=== PATIENT | male | born 1970 | race Caucasian/White ===

== ENCOUNTER 2022-03-26 20:37 | Inpatient (IN) | payer BC, SELFPAY ==
--- NOTE | ~2022-03-26 | CT_ITS ---
EXAMINATION: CT CHEST WITHOUT CONTRAST CT ABDOMEN AND PELVIS WITHOUT CONTRAST CLINICAL INFORMATION: Fall down stairs. Posterior rib pain. Rule out fracture. COMPARISON: None. TECHNIQUE: Multidetector volumetric imaging was performed through the chest, abdomen and pelvis without contrast. Sagittal and coronal reformatted images were obtained on the technologist's workstation. Axial MIP volume rendering provided. This CT examination was performed using dose optimization techniques as appropriate, variously including the following: *Automated exposure control *Adjustment of mA and/or kV according to patient size (this includes techniques or standardized protocols for targeted exams where dose is matched to indication/reason for exam; i.e. extremities or head) *Use of iterative reconstruction technique DLP: 722 mGy-cm. FINDINGS: CHEST: Lungs: The central airways are patent. No consolidation. No pleural effusion or pneumothorax. There are no pulmonary parenchymal nodules. Mediastinum: The heart is of normal size. There is no pericardial effusion. Central vascular structures are unremarkable. No hilar or mediastinal lymphadenopathy. Chest Wall/Axilla: No lymphadenopathy. No chest wall mass. ABDOMEN/PELVIS: Liver, Gallbladder, Biliary Tree: The liver is normal in size, shape, and attenuation. No focal hepatic lesion or biliary ductal dilatation is present. The gallbladder is contracted with no evidence of radiopaque gallstones, gallbladder wall thickening, or pericholecystic inflammatory changes. Pancreas: Unremarkable. Spleen: Unremarkable. Adrenal Glands: Unremarkable. Kidneys and Ureters: The kidneys are normal in size, shape, and attenuation. No hydronephrosis, hydroureter or calculi seen. No perinephric stranding. Bladder: Unremarkable. Gastrointestinal Tract: The stomach and small bowel appear unremarkable. No dilated loops of bowel or evidence of obstruction. No diverticulosis. No colonic wall thickening or adjacent inflammatory changes. No free air or free fluid. The appendix is unremarkable. Abdominal Wall: No hernia is demonstrated. Lymphovascular Structures: Lymph nodes: Normal. Vascular: Normal caliber aorta with mild atherosclerotic calcification. Pelvic Viscera: The prostate and seminal vesicles are unremarkable. OSSEOUS STRUCTURES: Vertebral body height and alignment maintained. Small endplate osteophytes throughout. Multilevel vacuum disc phenomenon. Intact sternum. The ribs are intact. The pelvis is intact. CT/CT abdomen pelvis wo con IMPRESSION: No acute traumatic finding of the chest, abdomen, or pelvis. No acute fractures are seen.
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
--- NOTE | ~2022-03-26 | CT_ITS ---
EXAMINATION: CT HEAD WITHOUT CONTRAST CT CERVICAL SPINE WITHOUT CONTRAST CLINICAL INFORMATION: Head strike. Headache. Neck pain. COMPARISON: CT head 01/01/2008 TECHNIQUE: Imaging was performed from the skull base to vertex without intravenous administration of contrast. In addition, helical noncontrast CT imaging was acquired through the cervical spine and source images were reviewed along with axial reconstructions and sagittal and coronal MPRs. [This CT examination was performed using dose optimization techniques as appropriate, variously including the following: *Automated exposure control *Adjustment of mA and/or kV according to patient size (this includes techniques or standardized protocols for targeted exams where dose is matched to indication/reason for exam; i.e. extremities or head) *Use of iterative reconstruction technique] DLP: 1163 mGy-cm FINDINGS: HEAD: No intracranial mass, hemorrhage, or midline shift is visualized. The ventricles and sulci are proportional. No extra-axial collections are identified. There is mucosal sinus disease in the left maxillary sinus CERVICAL SPINE: There is no evidence of acute cervical spine fracture. Vertebral bodies remain normal in height. Cervical vertebrae have normal alignment. There is multilevel degenerative spondylosis of the cervical spine with disc height narrowing and endplate spurs and facet joint arthrosis No pre- or paravertebral soft tissue abnormality is identified. Limited assessment of the lung apices is unremarkable. CT/CT head/brain wo con IMPRESSION: 1. No acute intracranial pathology. 2. No CT evidence of acute cervical spine fracture or traumatic subluxation
[2022-03-26 20:42] VITALS: BP 177/98; PULSE 100; RESP 20; TEMP 36.6; O2SAT 96; BMI 28.2
[2022-03-26 21:14] VITALS: BP 155/94; PULSE 108; RESP 18; TEMP 37.1; O2SAT 97
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
[2022-03-26 21:37] LABS: Basophils Absolute Auto 0.1 X10*3/uL (0.0-0.2); Eosinophils Absolute Auto 0.4 X10*3/uL (0.0-0.4); Eosinophils Percent Auto 4.9 % (0-4); Hematocrit 38.8 % (42.0-52.0); Hemoglobin 12.3 g/dl (14.0-18.0); Imm Gran Abs Auto 0.02 X10*3/uL (0.00-0.03); Imm Gran Pct Auto 0.2 % (0.0-0.4); Lymphocytes Absolute Auto 2.6 X10*3/uL (1.2-4.9); Lymphocytes Percent Auto 28.1 % (20-40); MANUAL DIFF FLAG NO; Mean Corpuscular HGB Conc 31.7 g/dl (31.0-36.0); Mean Corpuscular Hemoglobin 26.3 pg (27.0-33.0); Mean Corpuscular Volume 83.1 fL (80.0-98.0); Mean Platelet Volume 9.1 fL (9.4-12.4); Monocytes Absolute Auto 0.9 X10*3/uL (0.1-1.2); Monocytes Percent Auto 9.6 % (2-11); Neutrophils Absolute Auto 5.1 x10*3/uL (2.0-8.3); Neutrophils Percent Auto 56.2 % (45-73); Platelet Count 327 X10*3/uL (160-400); Red Blood Count 4.67 X10*6/uL (4.60-5.80); White Blood Count 9.1 X10*3/uL (4.8-10.8)
[2022-03-26 21:42] LABS: COVID-19 Test Negative (Negative)
[2022-03-26 22:08] LABS: Alanine Aminotransferase 54 U/L (0-40); Albumin Level 4.2 g/dL (3.5-5.0); Alkaline Phosphatase 87 U/L (39-117); Anion Gap 15 (12-20); Aspartate Amino Transferase 39 U/L (5-37); Bilirubin Direct 0.2 mg/dL (0.0-0.5); Bilirubin Total 0.4 mg/dL (0.0-1.0); Blood Urea Nitrogen 14 mg/dL (9-16); Calcium 9.2 mg/dL (8.4-10.2); Carbon Dioxide 27 mmol/L (22-29); Chloride 104 mmol/L (96-108); Creatinine Clr Calc Pharmacy 90.2; Estimated Glomerular Filt Rate > 60; Ethanol < 10 mg/dL; Glucose Random 94 mg/dL (60-115); Magnesium 2.3 mg/dL (1.6-2.6); Potassium 3.9 mmol/L (3.3-5.1); Sodium 142 mmol/L (135-145); Total Protein 7.2 g/dL (6.5-8.0)
[2022-03-26 22:40] LABS: Appearance Urine Clear; Color Urine Dark Yellow; Glucose Urine UA Negative (Negative); Leukocyte Esterase Urine Negative (Negative); Nitrite Urine Negative (Negative); PH 5.5 (5.0-8.0); Specific Gravity - Urine >= 1.030 (1.005-1.025); Urine Blood Negative (Negative); Urine Ketones Trace mg/dL (Negative); Urine Protein Trace mg/dL (Neg-Trace)
[2022-03-26 22:56] LABS: Amphetamine Screen Urine Not Detected (Not Detect); Barbiturates, Urine Not Detected (Not Detect); Benzodiazepines Screen Urine Not Detected (Not Detect); Cannabinoid Screen Urine POSITIVE (Not Detect); Cocaine Screen Urine POSITIVE (Not Detect); Fentanyl, urine POSITIVE (Not Detect); Opiate Screen Urine POSITIVE (Not Detect); Phencyclidine Screen Urine Not Detected (Not Detect)
--- NOTE | 2022-03-27 04:19 | PC.NURSE ---
Patient is in bed appears sleeping, no distress observed/reported at this time, patient ambulates with walker due to left knee torn meniscus, patient reports pain when ambulates, med rec completed/approved, patient was assessed by care team, pending disposition due to unable to reach collateral, but disposition more likely inpatient bed search, will continue to monitor.
--- NOTE | 2022-03-27 07:17 | PC.NURSE ---
patient appears luisana remain asleep at present, respirations are even and unlabored patient appears in no distress
[2022-03-27 07:59] VITALS: BP 153/65; PULSE 68; RESP 18; TEMP 37.2
[2022-03-27] MEDS: Aspirin Enteric Coated 325 MG TABLET.DR PO ×2 (08:20→21:56)
[2022-03-27] MEDS: Gabapentin 100 MG CAPSULE PO ×3 (08:20→21:56)
--- NOTE | 2022-03-27 11:12 | ECG_ITS ---
Test Reason : med clearance Blood Pressure : / mmHG Vent. Rate : 064 BPM Atrial Rate : 064 BPM P-R Int : 132 ms QRS Dur : 094 ms QT Int : 430 ms P-R-T Axes : 018 -05 009 degrees QTc Int : 443 ms Normal sinus rhythm with sinus arrhythmia Normal ECG No previous ECGs available Referred By: Ana Perez Electronically Signed By:LATOYA BENNETT
--- NOTE | 2022-03-27 11:26 | PHA.MEDREC ---
Pharmacy Consult ? Medication Reconciliation Pharmacy has completed the medication reconciliation. Reviewed med rec done by nursing
[2022-03-27] MEDS: Acetaminophen 325 MG TABLET 650 MG PO (16:12)
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
[2022-03-27] MEDS: hydrOXYzine HCL 25 MG TABLET PO (18:53)
[2022-03-28 06:00] VITALS: BP 141/75; PULSE 66; RESP 18; TEMP 36.1; O2SAT 100
[2022-03-28 08:03] LABS: Estimated Average Glucose 100 mg/dL; Hemoglobin A1c % 5.1 %
[2022-03-28 08:12] LABS: Cholesterol 231 mg/dL; HDL Cholesterol 56 mg/dL; LDL Cholesterol Calculated 162 mg/dl; Magnesium 2.3 mg/dL (1.6-2.6); Triglycerides 66 mg/dL
[2022-03-28 08:34] LABS: Free T4 (Free Thyroxine) 0.95 ng/dL (0.71-1.85); Thyroid Stimulating Hormone 0.09 uIU/mL (0.32-4.0)
[2022-03-28] MEDS: Gabapentin 100 MG CAPSULE PO ×3 (08:55→20:59)
[2022-03-28] MEDS: Aspirin Enteric Coated 325 MG TABLET.DR PO ×2 (08:55→20:59)
[2022-03-28 08:56] VITALS: BP 149/71; PULSE 71; RESP 16; TEMP 36.7; O2SAT 100
--- NOTE | 2022-03-28 11:11 | P.HPPS_ITS ---
HPI Date of Service: 03/28/22 Chief Complaint: recurrent major depression opiate cocaine use diso Sources of Information: patient interviewed, chart reviewed and crisis/core team assessment reviewed HPI Subjective Notes: Hanks Warning and Conditional Voluntary Narrative: pt is a 51 yo male with hx of depression and opiod and cocaine abuse/dependence who presents depressed, with SI and in opiate and cocaine withdrawal in face of marital strife and relapse. Pt says up until past 4 months, he's always been in an overall good mood. He's not sure why, but started getting depressed. Two years ago pt had shoulder surgery and due to pain, started using opiates, eventually combined with cocaine. He's been hiding his addiction from his . This past week, said she was leaving him which worsened depression and triggered increased drug use. Patient became suicidal and planned to jump off bridge to end his life. His brother knew about it and went after him to stop him. Pt reported AH and VH, however he says it's resolved, never happened before and he thinks it was just due to drugs. Currently, no longer SI, but remains depressed and tearful. Pt wants to get back on Suboxone and wants to start med for depression. Denies Trauma hx; denies manic type behavior or episodes; denies etoh. 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 Substance History: cocaine/opiates 2-3 years Trauma History: denies Diagnostics Vital Signs (24Hr): Vital Signs - 24 hr 03/28/22 06:00 03/28/22 08:56 Temperature 97 F 98.1 F Pulse Rate 66 71 Respiratory Rate 18 16 Blood Pressure 141/75 H 149/71 H Pulse Oximetry 100 100 Oxygen Delivery Method Room Air Room Air BMI result Body Mass Index 28.2 Labs Results: 03/26/22 21:31 03/26/22 21:31 Labs: Laboratory Results - last 48 hr 03/26/22 03/26/22 03/26/22 21:19 21:31 21:31 WBC 9.1 RBC 4.67 Hgb 12.3 L Hct 38.8 L MCV 83.1 MCH 26.3 L MCHC 31.7 RDW 14.0 Plt Count 327 MPV 9.1 L Immature Gran % (Auto) 0.2 Neut % (Auto) 56.2 Lymph % (Auto) 28.1 Parke % (Auto) 9.6 Eos % (Auto) 4.9 H Baso % (Auto) 1.0 Lymph # (Auto) 2.6 Parke # (Auto) 0.9 Eos # (Auto) 0.4 Baso # (Auto) 0.1 Abs Immat Gran (auto) 0.02 Absolute Neuts (auto) 5.1 Absolute Nucleated RBC 0.000 Nucleated RBC % (auto) 0.0 Sodium 142 Potassium 3.9 Chloride 104 Carbon Dioxide 27 Anion Gap 15 BUN 14 Creatinine 0.97 Estim Creat Clear Calc 90.2 Estimated GFR > 60 Random Glucose 94 Estimat Average Glucose Hemoglobin A1c % Calcium 9.2 Magnesium 2.3 Total Bilirubin 0.4 Direct Bilirubin 0.2 AST 39 H ALT 54 H Alkaline Phosphatase 87 Total Protein 7.2 Albumin 4.2 Triglycerides Cholesterol LDL Cholesterol, Calc HDL Cholesterol TSH Free T4 Urine Color Urine Appearance Urine pH Ur Specific [place] Urine Protein Urine Glucose (UA) Urine Ketones Urine Blood Urine Nitrite Ur Leukocyte Esterase Urine Opiates Screen Urine Fentanyl Screen Ur Barbiturates Screen Ur Phencyclidine Scrn Ur Amphetamines Screen U Benzodiazepines Scrn Urine Cocaine Screen U Marijuana (THC) Screen Ethyl Alcohol < 10 COVID-19 (KATHI) Negative COVID-19 Clin Com See Note 03/26/22 03/26/22 03/28/22 22:28 22:28 07:38 WBC RBC Hgb Hct MCV MCH MCHC RDW Plt Count MPV Immature Gran % (Auto) Neut % (Auto) Lymph % (Auto) Parke % (Auto) Eos % (Auto) Baso % (Auto) Lymph # (Auto) Parke # (Auto) Eos # (Auto) Baso # (Auto) Abs Immat Gran (auto) Absolute Neuts (auto) Absolute Nucleated RBC Nucleated RBC % (auto) Sodium Potassium Chloride Carbon Dioxide Anion Gap BUN Creatinine Estim Creat Clear Calc Estimated GFR Random Glucose Estimat Average Glucose 100 Hemoglobin A1c % 5.1 Calcium Magnesium Total Bilirubin Direct Bilirubin AST ALT Alkaline Phosphatase Total Protein Albumin Triglycerides Cholesterol LDL Cholesterol, Calc HDL Cholesterol TSH Free T4 Urine Color Dark Yellow Urine Appearance Clear Urine pH 5.5 Ur Specific [place] >= 1.030 H Urine Protein Trace Urine Glucose (UA) Negative Urine Ketones Trace Urine Blood Negative Urine Nitrite Negative Ur Leukocyte Esterase Negative Urine Opiates Screen POSITIVE H Urine Fentanyl Screen POSITIVE H Ur Barbiturates Screen Not Detected Ur Phencyclidine Scrn Not Detected Ur Amphetamines Screen Not Detected U Benzodiazepines Scrn Not Detected Urine Cocaine Screen POSITIVE H U Marijuana (THC) Screen POSITIVE H Ethyl Alcohol COVID-19 (KATHI) COVID-19 [employer] Com 03/28/22 07:38 WBC RBC Hgb Hct MCV MCH MCHC RDW Plt Count MPV Immature Gran % (Auto) Neut % (Auto) Lymph % (Auto) Parke % (Auto) Eos % (Auto) Baso % (Auto) Lymph # (Auto) Parke # (Auto) Eos # (Auto) Baso # (Auto) Abs Immat Gran (auto) Absolute Neuts (auto) Absolute Nucleated RBC Nucleated RBC % (auto) Sodium Potassium Chloride Carbon Dioxide Anion Gap BUN Creatinine Estim Creat Clear Calc Estimated GFR Random Glucose Estimat Average Glucose Hemoglobin A1c % Calcium Magnesium 2.3 Total Bilirubin Direct Bilirubin AST ALT Alkaline Phosphatase Total Protein Albumin Triglycerides 66 Cholesterol 231 LDL Cholesterol, Calc 162 HDL Cholesterol 56 TSH 0.09 L Free T4 0.95 Urine Color Urine Appearance Urine pH Ur Specific [place] Urine Protein Urine Glucose (UA) Urine Ketones Urine Blood Urine Nitrite Ur Leukocyte Esterase Urine Opiates Screen Urine Fentanyl Screen Ur Barbiturates Screen Ur Phencyclidine Scrn Ur Amphetamines Screen U Benzodiazepines Scrn Urine Cocaine Screen U Marijuana (THC) Screen Ethyl Alcohol COVID-19 (KATHI) COVID-19 Clin Com Imaging Radiology Impressions: ITS Impressions Cervical Spine CT 03/26/22 22:47 IMPRESSION: 1. No acute intracranial pathology. 2. No CT evidence of acute cervical spine fracture or traumatic subluxation Head CT 03/26/22 22:47 IMPRESSION: 1. No acute intracranial pathology. 2. No CT evidence of acute cervical spine fracture or traumatic subluxation Abdomen/Pelvis CT 03/26/22 22:51 IMPRESSION: No acute traumatic finding of the chest, abdomen, or pelvis. No acute fractures are seen. Chest CT 03/26/22 22:51 IMPRESSION: No acute traumatic finding of the chest, abdomen, or pelvis. No acute fractures are seen. Meds/Allergies Meds Home Medications Medication Instructions Recorded Confirmed Type aspirin 325 mg tablet,delayed 1 tab PO BID 03/26/22 03/26/22 History release gabapentin 100 mg capsule 1 cap PO TID 03/26/22 03/27/22 History Allergies Allergies Allergy/AdvReac Type Severity Reaction Status Date / Time No Known Allergies Allergy Verified 03/26/22 20:42 [No Known Allergies*] Mental Status Exam Mental Status Exam Narrative: Pt is alert and oriented; behavior is marginally cooperative keeping back to fiction and nonfiction writer prose, under covers, but making genuine effort to be polite; in emotional distress, tearful and in discomfort from withdrawal; dressed in casual attire, tattooed; adequate hygiene; mood is described as depressed and affect congruent, tearful, eyes closed; eye contact appropriate; Speech sparse; quiet; normal rate and prosody and not pressured; psychomotor retardation present; thought process is organized and goal directed; Thought content is his mistakes, sadness over his marriage, guilt for drug use; recent SI; otherwise pertinent to relevant topics and without any delusional content, paranoid ideations or grandiosity; denies any SI/HI. There is no evidence of perceptual disturbance and denies AVH. Patients insight and judgment are impaired. Assessment & Plan Assessment & Plan (1) MDD (major depressive disorder), recurrent episode, severe: Status: Acute Code(s): F33.2 - Major depressive disorder, recurrent severe without psychotic features (2) Drug-induced psychotic disorder: Status: Acute Code(s): F19.959 - Other psychoactive substance use, unspecified with psychoactive substance-induced psychotic disorder, unspecified Plan pt is a 51 yo male with hx of depression and opiod and cocaine abuse/dependence who presents depressed, with SI and in opiate and cocaine withdrawal in face of marital strife and relapse. -most of depression seems to have originated from injury, struggles working, opiate/cocaine addiction and the problems it's caused with and family, culminating with deciding to leave him due to continued addiction -will support through detox; wants to get back on suboxone -will start Wellbutrin once withdrawal under control (fiction and nonfiction writer prose discussed wellbutrin risks/side-effects and patient wants to start) PLAN: cv q15 min suboxone prn; will restarted scheduled wellburin xl 150mg once detox more stable Patient educated on: diagnosis, medication risk/benefits and substance abuse Informed Consent: understands Reason for continued inpatient stay Substantial Risk for: harm to self and rapid decompensation
[2022-03-28 17:11] VITALS: BP 161/93; PULSE 92; RESP 22; TEMP 36.6; O2SAT 96
[2022-03-29 06:00] VITALS: BP 147/80; PULSE 82; RESP 16; TEMP 36.5; O2SAT 100
[2022-03-29] MEDS: Loperamide HCl 2 MG CAPSULE PO (06:29)
[2022-03-29] MEDS: Gabapentin 100 MG CAPSULE PO ×3 (09:01→19:55)
[2022-03-29] MEDS: Aspirin Enteric Coated 325 MG TABLET.DR PO ×2 (09:01→19:55)
[2022-03-29] MEDS: buPROPion HCl XL 150 MG TAB.ER.24H PO (09:03)
[2022-03-29] MEDS: Cyclobenzaprine HCl 10 MG TABLET PO (10:24)
[2022-03-29] MEDS: Buprenorphine/Naloxone 4/1 mg FILM 1 FILM SUBLINGUAL ×3 (10:24→19:55)
--- NOTE | 2022-03-29 13:52 | P.PNPSI_ITS ---
Subjective Subjective Date of Service: 03/29/22 Reason For Visit: recurrent major depression opiate cocaine use diso Interim History: Patient is tearful, lying in bed; he still depressed but says he is not suicidal at all anymore. Patient says he is so sorry and is ashamed that he thought of suicide. He expresses deep remorse and gets tearful thinking about how this would have affected His and children and grandchildren. Patient is feeling some reprieve from withdrawal with the Suboxone and wants to get on maintenance dose. Discussed what it will take to become sober and patient agrees needs to continue to cut off anyone who continues to use; also discussed transparency and patient agrees he needs this in his life. Patient is missing knee surgery that was scheduled this past Wednesday Mental Status Exam Mental Status Exam Narrative: Pt is alert and oriented; behavior is cooperative, sitting up to talk w/ insurance writer; in emotional distress, tearful and in discomfort from withdrawal and should/knee pain; dressed in casual attire, tattooed; adequate hygiene; mood is described as depressed...little better and affect congruent, tearful; eye contact appropriate; Speech normal volume, rate and prosody and not pressured; psychomotor retardation present; thought process is organized and goal directed; Thought content is his mistakes, sadness hurt he's caused /family, guilt for drug use; otherwise pertinent to relevant topics and without any delusional c ontent, paranoid ideations or grandiosity; denies any SI/HI. There is no evidence of perceptual disturbance and denies AVH. Patients insight and judgment are impaired but improved. Diagnostics Vital Signs (24Hr): Vital Signs - 24 hr 03/28/22 17:11 03/29/22 06:00 Temperature 97.8 F 97.7 F Pulse Rate 92 82 Respiratory Rate 22 H 16 Blood Pressure 161/93 H 147/80 H Pulse Oximetry 96 100 Oxygen Delivery Method Room Air Room Air BMI result Body Mass Index 28.2 Labs Results: 03/26/22 21:31 03/26/22 21:31 Labs: Laboratory Results - last 48 hr 03/28/22 03/28/22 07:38 07:38 Estimat Average Glucose 100 Hemoglobin A1c % 5.1 Magnesium 2.3 Triglycerides 66 Cholesterol 231 LDL Cholesterol, Calc 162 HDL Cholesterol 56 TSH 0.09 L Free T4 0.95 Imaging Radiology Impressions: ITS Impressions Cervical Spine CT 03/26/22 22:47 IMPRESSION: 1. No acute intracranial pathology. 2. No CT evidence of acute cervical spine fracture or traumatic subluxation Head CT 03/26/22 22:47 IMPRESSION: 1. No acute intracranial pathology. 2. No CT evidence of acute cervical spine fracture or traumatic subluxation Abdomen/Pelvis CT 03/26/22 22:51 IMPRESSION: No acute traumatic finding of the chest, abdomen, or pelvis. No acute fractures are seen. Chest CT 03/26/22 22:51 IMPRESSION: No acute traumatic finding of the chest, abdomen, or pelvis. No acute fractures are seen. Medications Medications Current Medications Acetaminophen (Acetaminophen 325 Mg Tablet) 650 mg PO Q6H PRN PRN Reason: Headache/Pain Mild Scale (1-3) Last Admin: 03/27/22 16:12 Dose: 650 mg Al Hydroxide/Mg Hydroxide (Magnesium Hydrox/Alum Hydrox 30 Ml Oral.Susp) 30 ml PO Q6H PRN PRN Reason: Heartburn/Nausea Aspirin (Aspirin Enteric Coated 325 Mg Tablet.Dr) 325 mg PO BID [facility] Last Admin: 03/29/22 09:01 Dose: 325 mg Buprenorphine/Naloxone (Buprenorphine/Naloxone 4/1 Mg Film) 1 film SUBLINGUAL Q4H ONE Stop: 03/29/22 13:52 Bupropion HCl (Bupropion Hcl Xl 150 Mg Tab.Er.24h) 150 mg PO DAILY [facility] Last Admin: 03/29/22 09:03 Dose: 150 mg Clonidine HCl (Clonidine Hcl 0.1 Mg Tablet) 0.1 mg PO Q4H PRN; Protocol PRN Reason: withdrawal symptoms Cyclobenzaprine HCl (Cyclobenzaprine Hcl 10 Mg Tablet) 10 mg PO TID PRN PRN Reason: muscle cramps Last Admin: 03/29/22 10:24 Dose: 10 mg Dicyclomine HCl (Dicyclomine Hcl 10 Mg Capsule) 10 mg PO TID PRN PRN Reason: stomach cramps Gabapentin (Gabapentin 100 Mg Capsule) 100 mg PO TID [facility] Last Admin: 03/29/22 09:01 Dose: 100 mg Hydroxyzine HCl (Hydroxyzine Hcl 25 Mg Tablet) 25 mg PO Q6H PRN PRN Reason: Anxiety Last Admin: 03/27/22 18:53 Dose: 25 mg Loperamide HCl (Loperamide Hcl 2 Mg Capsule) 2 mg PO Q4H PRN PRN Reason: Loose Stool Last Admin: 03/29/22 06:29 Dose: 2 mg Magnesium Hydroxide (Milk Of Magnesia 30 Ml Oral.Susp) 30 ml PO DAILY PRN PRN Reason: Constipation Pharmacy Consult (Consult Rx Perform Med Rec) 1 each MISCELLANE ONCE PRN PRN Reason: Consult order Trazodone HCl (Trazodone Hcl 50 Mg Tablet) 50 mg PO BEDTIME PRN PRN Reason: Insomnia Allergies Allergies Allergy/AdvReac Type Severity Reaction Status Date / Time No Known Allergies Allergy Verified 03/26/22 20:42 [No Known Allergies*] Assessment & Plan Assessment & Plan (1) MDD (major depressive disorder), recurrent episode, severe: Status: Acute Code(s): F33.2 - Major depressive disorder, recurrent severe without psychotic features (2) Drug-induced psychotic disorder: Status: Acute Code(s): F19.959 - Other psychoactive substance use, unspecified with psychoactive substance-induced psychotic disorder, unspecified Plan pt is a 51 yo male with hx of depression and opiod and cocaine abuse/dependence who presents depressed, with SI and in opiate and cocaine withdrawal in face of marital strife and relapse. -most of depression seems to have originated from injury, struggles working, opiate/cocaine addiction and the problems it's caused with and family, c ulminating with deciding to leave him due to continued addiction -will support through detox; wants to get back on suboxone -will start Wellbutrin once withdrawal under control (insurance writer discussed wellbutrin risks/side-effects and patient wants to start) 03/29 Depressed, tearful but no SI; feeling a little better. Appreciates Suboxone and wants to get on maintenance dose. Trying to be hopeful that he can pursue an stay sober. PLAN: cv q15 min Suboxone 4/1 mg now dose and bedtime dose Suboxone 12/3 mg daily starting 03/30 wellburin xl 150mg Starting 03/30 Help establishing aftercare support for sobriety I spent minutes with the patient and/or on the patient floor today, greater than?50% of which was spent counseling/coordinating care. Patient educated on: diagnosis, medication risk/benefits, substance abuse and therapeutic strategies Informed Consent: understands Reason for contiued inpatient stay Substantial Risk for: rapid decompensation
[2022-03-29 17:27] VITALS: BP 142/94; PULSE 101; TEMP 36.7; O2SAT 100
[2022-03-30 06:00] VITALS: BP 134/93; PULSE 108; RESP 20; TEMP 36.6; O2SAT 100
[2022-03-30 07:27] LABS: Folate 17.5 ng/mL (> or = 4.0); Vitamin B12 673 pg/mL (200-900)
[2022-03-30] MEDS: Gabapentin 100 MG CAPSULE PO (09:46)
[2022-03-30] MEDS: buPROPion HCl XL 150 MG TAB.ER.24H PO (09:46)
[2022-03-30] MEDS: Buprenorphine/Naloxone 12/3 mg FILM 1 FILM SUBLINGUAL (09:46)
[2022-03-30] MEDS: Aspirin Enteric Coated 325 MG TABLET.DR PO ×2 (09:46→20:26)
[2022-03-30] MEDS: Cyclobenzaprine HCl 10 MG TABLET PO ×2 (10:07→20:31)
[2022-03-30] MEDS: Acetaminophen 325 MG TABLET 650 MG PO (10:07)
--- NOTE | 2022-03-30 11:42 | HO.PSYCHPN ---
Subjective Subjective Date of Service: 03/30/22 Reason For Visit: recurrent major depression opiate cocaine use diso Interim History: pt says feeling better today, mood is better and depression abating; denies any SI at all. He said he had a good conversation with (and daughter) and they are reconcilled. He says he's feeling so grateful that he's alive. Pt says subxone dose today is good and he agrees to prn suboxone for pain. Says wellbutrin working well. Pt wants help with aftercare, partial program. Discussed sobriety and plans to stay sober and pitfalls leading to relapse, which patient understood and will continue to think about. Mental Status Exam Mental Status Exam Narrative: Pt is alert and oriented; behavior is cooperative, friendly, calm; dressed in casual attire, tattooed; adequate hygiene; mood is described as better....good and affect congruent, brighter; eye contact appropriate; Speech normal volume, rate and prosody and not pressured; no psychomotor retardation present; thought process is organized and goal directed; Thought content is on gratitude for family, pusuring sobriety; post discharge plans; otherwise pertinent to relevant topics and without any delusional content, paranoid ideations or grandiosity; denies any SI/HI. There is no evidence of perceptual disturbance and denies AVH. Patients insight and judgment are fair. Diagnostics Vital Signs (24Hr): Vital Signs - 24 hr 03/29/22 17:27 03/30/22 06:00 Temperature 98.0 F 98 F Pulse Rate 101 H 108 H Respiratory Rate 20 Blood Pressure 142/94 H 134/93 H Pulse Oximetry 100 100 Oxygen Delivery Method Room Air Room Air BMI result Body Mass Index 28.2 Labs Results: 03/26/22 21:31 03/26/22 21:31 Labs: Laboratory Results - last 48 hr 03/28/22 07:38 Vitamin B12 673 Folate 17.5 Imaging Radiology Impressions: ITS Impressions Cervical Spine CT 03/26/22 22:47 IMPRESSION: 1. No acute intracranial pathology. 2. No CT evidence of acute cervical spine fracture or traumatic subluxation Head CT 03/26/22 22:47 IMPRESSION: 1. No acute intracranial pathology. 2. No CT evidence of acute cervical spine fracture or traumatic subluxation Abdomen/Pelvis CT 03/26/22 22:51 IMPRESSION: No acute traumatic finding of the chest, abdomen, or pelvis. No acute fractures are seen. Chest CT 03/26/22 22:51 IMPRESSION: No acute traumatic finding of the chest, abdomen, or pelvis. No acute fractures are seen. Medications Medications Current Medications Acetaminophen (Acetaminophen 325 Mg Tablet) 650 mg PO Q6H PRN PRN Reason: Headache/Pain Mild Scale (1-3) Last Admin: 03/30/22 10:07 Dose: 650 mg Al Hydroxide/Mg Hydroxide (Magnesium Hydrox/Alum Hydrox 30 Ml Oral.Susp) 30 ml PO Q6H PRN PRN Reason: Heartburn/Nausea Aspirin (Aspirin Enteric Coated 325 Mg Tablet.Dr) 325 mg PO BID [facility] Last Admin: 03/30/22 09:46 Dose: 325 mg Buprenorphine/Naloxone (Buprenorphine/Naloxone 12/3 Mg Film) 1 film SUBLINGUAL DAILY [facility] Last Admin: 03/30/22 09:46 Dose: 1 film Bupropion HCl (Bupropion Hcl Xl 150 Mg Tab.Er.24h) 150 mg PO DAILY [facility] Last Admin: 03/30/22 09:46 Dose: 150 mg Clonidine HCl (Clonidine Hcl 0.1 Mg Tablet) 0.1 mg PO Q4H PRN; Protocol PRN Reason: withdrawal symptoms Cyclobenzaprine HCl (Cyclobenzaprine Hcl 10 Mg Tablet) 10 mg PO TID PRN PRN Reason: muscle cramps Last Admin: 03/30/22 10:07 Dose: 10 mg Dicyclomine HCl (Dicyclomine Hcl 10 Mg Capsule) 10 mg PO TID PRN PRN Reason: stomach cramps Gabapentin (Gabapentin 100 Mg Capsule) 100 mg PO TID [facility] Last Admin: 03/30/22 09:46 Dose: 100 mg Hydroxyzine HCl (Hydroxyzine Hcl 25 Mg Tablet) 25 mg PO Q6H PRN PRN Reason: Anxiety Last Admin: 03/27/22 18:53 Dose: 25 mg Loperamide HCl (Loperamide Hcl 2 Mg Capsule) 2 mg PO Q4H PRN PRN Reason: Loose Stool Last Admin: 03/29/22 06:29 Dose: 2 mg Magnesium Hydroxide (Milk Of Magnesia 30 Ml Oral.Susp) 30 ml PO DAILY PRN PRN Reason: Constipation Pharmacy Consult (Consult Rx Perform Med Rec) 1 each MISCELLANE ONCE PRN PRN Reason: Consult order Trazodone HCl (Trazodone Hcl 50 Mg Tablet) 50 mg PO BEDTIME PRN PRN Reason: Insomnia Allergies Allergies Allergy/AdvReac Type Severity Reaction Status Date / Time No Known Allergies Allergy Verified 03/26/22 20:42 [No Known Allergies*] Assessment & Plan Assessment & Plan (1) MDD (major depressive disorder), recurrent episode, severe: Status: Acute Code(s): F33.2 - Major depressive disorder, recurrent severe without psychotic features (2) Drug-induced psychotic disorder: Status: Acute Code(s): F19.959 - Other psychoactive substance use, unspecified with psychoactive substance-induced psychotic disorder, unspecified Plan pt is a 51 yo male with hx of depression and opiod and cocaine abuse/dependence who presents depressed, with SI and in opiate and cocaine withdrawal in face of marital strife and relapse. -most of depression seems to have originated from injury, struggles working, opiate/cocaine addiction and the problems it's caused with and family, culminating with deciding to leave him due to continued addiction -will support through detox; wants to get back on suboxone -will start Wellbutrin once withdrawal under control (residential mortgage underwriter discussed wellbutrin risks/side-effects and patient wants to start) 03/29 Depressed, tearful but no SI; feeling a little better. Appreciates Suboxone and wants to get on maintenance dose. Trying to be hopeful that he can pursue an stay sober. 03/30 mood significantly better, no SI, affect brighter and patient optimistic. Tolerating medications well PLAN: cv q15 min Suboxone 12/3 mg daily Added Suboxone 2/0.5 mg b.i.d. p.r.n. for breakthrough pain wellburin xl 150mg Help establishing aftercare support for sobriety I spent minutes with the patient and/or on the patient floor today, greater than?50% of which was spent counseling/coordinating care. Patient educated on: diagnosis, medication risk/benefits, substance abuse and therapeutic strategies Informed Consent: understands Reason for contiued inpatient stay Substantial Risk for: stable for discharge
[2022-03-30 16:50] VITALS: BP 140/66; PULSE 77; TEMP 36.7
--- NOTE | 2022-03-30 19:43 | MHC.RECOVSUP ---
? Reason for consult:Recovery Support o Current location: 511-1 ? o Identified substance use concern:Fentenyl, Cocaine ? - Support ? ?Intervention: o MAT started or to be started o Community resources provided o Harm reduction discussion ? Plan: o Referral to [facility] o Follow up tomorrow ? ? Additional information:?Patient consultation with Care Team before entry. Patient is a 51 year old father of three girls and resides with his family in [facility]. Dick disclosed that he has been suffering from Substance Use Disorder to Fentenyl and Cocaine for a few years and has compromised his relationships with his family. Patient states that he is ready for recovery, is looking for a referral for a Supervisory Training Specialist and will be able to return home once these services are in place. We were able review harm reduction strategies, implement tools for him to utilize in the moment and supported him with positive affirmations.I will submit the referral for a Supervisory Training Specialist and follow up with patient tomorrow.
[2022-03-30] MEDS: traZODone HCL 50 MG TABLET PO (20:32)
[2022-03-31 08:41] VITALS: BP 137/90; PULSE 77; RESP 16; TEMP 36.5; O2SAT 100
[2022-03-31] MEDS: Buprenorphine/Naloxone 12/3 mg FILM 1 FILM SUBLINGUAL (08:45)
[2022-03-31] MEDS: buPROPion HCl XL 150 MG TAB.ER.24H PO (08:45)
[2022-03-31] MEDS: Aspirin Enteric Coated 325 MG TABLET.DR PO ×2 (08:45→20:40)
--- NOTE | 2022-03-31 16:21 | HO.PSYCHPN ---
Subjective Subjective Date of Service: 03/31/22 Reason For Visit: recurrent major depression opiate cocaine use diso Interim History: Again good mood, no SI, tolerating medications well. Says so far he has not needed any p.r.n. Suboxone for pain. Patient thinking more about aftercare plans and is going to involve self and services at [facility]; also met with a graduation coach today and is ready to engage. Continues to talk with his family including his brother who is sober and very supportive. Mental Status Exam Mental Status Exam Narrative: Pt is alert and oriented; behavior is cooperative, friendly, calm; dressed in casual attire, tattooed; adequate hygiene; mood is described as good and affect congruent, brighter; eye contact appropriate; Speech normal volume, rate and prosody and not pressured; no psychomotor retardation present; thought process is organized and goal directed; Thought content is on gratitude for family, pursuing sobriety; post discharge plans; otherwise pertinent to relevant topics and without any delusional content, paranoid ideations or grandiosity; denies any SI/HI. There is no evidence of perceptual disturbance and denies AVH. Patients insight and judgment are fair. Diagnostics Vital Signs (24Hr): Vital Signs - 24 hr 03/30/22 16:50 03/31/22 08:41 Temperature 98.0 F 97.7 F Pulse Rate 77 77 Respiratory Rate 16 Blood Pressure 140/66 H 137/90 H Pulse Oximetry 100 Oxygen Delivery Method Room Air BMI result Body Mass Index 28.2 Labs Results: 03/26/22 21:31 03/26/22 21:31 Labs: Laboratory Results - last 48 hr 03/28/22 07:38 Vitamin B12 673 Folate 17.5 Imaging Radiology Impressions: ITS Impressions Cervical Spine CT 03/26/22 22:47 IMPRESSION: 1. No acute intracranial pathology. 2. No CT evidence of acute cervical spine fracture or traumatic subluxation Head CT 03/26/22 22:47 IMPRESSION: 1. No acute intracranial pathology. 2. No CT evidence of acute cervical spine fracture or traumatic subluxation Abdomen/Pelvis CT 03/26/22 22:51 IMPRESSION: No acute traumatic finding of the chest, abdomen, or pelvis. No acute fractures are seen. Chest CT 03/26/22 22:51 IMPRESSION: No acute traumatic finding of the chest, abdomen, or pelvis. No acute fractures are seen. Medications Medications Current Medications Acetaminophen (Acetaminophen 325 Mg Tablet) 650 mg PO Q6H PRN PRN Reason: Headache/Pain Mild Scale (1-3) Last Admin: 03/30/22 10:07 Dose: 650 mg Al Hydroxide/Mg Hydroxide (Magnesium Hydrox/Alum Hydrox 30 Ml Oral.Susp) 30 ml PO Q6H PRN PRN Reason: Heartburn/Nausea Aspirin (Aspirin Enteric Coated 325 Mg Tablet.Dr) 325 mg PO BID [facility] Last Admin: 03/31/22 08:45 Dose: 325 mg Buprenorphine/Naloxone (Buprenorphine/Naloxone 12/3 Mg Film) 1 film SUBLINGUAL DAILY [facility] Last Admin: 03/31/22 08:45 Dose: 1 film Buprenorphine/Naloxone (Buprenorphine/Naloxone 2/0.5mg Film) 1 film SUBLINGUAL BID PRN PRN Reason: mod to severe pain Bupropion HCl (Bupropion Hcl Xl 150 Mg Tab.Er.24h) 150 mg PO DAILY [facility] Last Admin: 03/31/22 08:45 Dose: 150 mg Clonidine HCl (Clonidine Hcl 0.1 Mg Tablet) 0.1 mg PO Q4H PRN; Protocol PRN Reason: withdrawal symptoms Cyclobenzaprine HCl (Cyclobenzaprine Hcl 10 Mg Tablet) 10 mg PO TID PRN PRN Reason: muscle cramps Last Admin: 03/30/22 20:31 Dose: 10 mg Dicyclomine HCl (Dicyclomine Hcl 10 Mg Capsule) 10 mg PO TID PRN PRN Reason: stomach cramps Gabapentin (Gabapentin 100 Mg Capsule) 100 mg PO TID PRN PRN Reason: mild pain Hydroxyzine HCl (Hydroxyzine Hcl 25 Mg Tablet) 25 mg PO Q6H PRN PRN Reason: Anxiety Last Admin: 03/27/22 18:53 Dose: 25 mg Loperamide HCl (Loperamide Hcl 2 Mg Capsule) 2 mg PO Q4H PRN PRN Reason: Loose Stool Last Admin: 03/29/22 06:29 Dose: 2 mg Magnesium Hydroxide (Milk Of Magnesia 30 Ml Oral.Susp) 30 ml PO DAILY PRN PRN Reason: Constipation Pharmacy Consult (Consult Rx Perform Med Rec) 1 each MISCELLANE ONCE PRN PRN Reason: Consult order Trazodone HCl (Trazodone Hcl 50 Mg Tablet) 50 mg PO BEDTIME PRN PRN Reason: Insomnia Last Admin: 03/30/22 20:32 Dose: 50 mg Allergies Allergies Allergy/AdvReac Type Severity Reaction Status Date / Time No Known Allergies Allergy Verified 03/26/22 20:42 [No Known Allergies*] Assessment & Plan Assessment & Plan (1) MDD (major depressive disorder), recurrent episode, severe: Status: Acute Code(s): F33.2 - Major depressive disorder, recurrent severe without psychotic features (2) Drug-induced psychotic disorder: Status: Acute Code(s): F19.959 - Other psychoactive substance use, unspecified with psychoactive substance-induced psychotic disorder, unspecified Plan pt is a 51 yo male with hx of depression and opiod and cocaine abuse/dependence who presents depressed, with SI and in opiate and cocaine withdrawal in face of marital strife and relapse. -most of depression seems to have originated from injury, struggles working, opiate/cocaine addiction and the problems it's caused with and family, culminating with deciding to leave him due to continued addiction -will support through detox; wants to get back on suboxone -will start Wellbutrin once withdrawal under control (repairer typewriter discussed wellbutrin risks/side-effects and patient wants to start) 03/29 Depressed, tearful but no SI; feeling a little better. Appreciates Suboxone and wants to get on maintenance dose. Trying to be hopeful that he can pursue an stay sober. 03/30 mood significantly better, no SI, affect brighter and patient optimistic. Tolerating medications well 03/31 continue current treatment plan, mood remains good, no SI, patient optimistic and future oriented. PLAN: cv q15 min Suboxone 12/3 mg daily Added Suboxone 2/0.5 mg b.i.d. p.r.n. for breakthrough pain wellburin xl 150mg Help establishing aftercare support for sobriety I spent minutes with the patient and/or on the patient floor today, greater than?50% of which was spent counseling/coordinating care. Patient educated on: diagnosis, medication risk/benefits, substance abuse and medical condition Informed Consent: understands Reason for contiued inpatient stay Substantial Risk for: stable for discharge
[2022-03-31 18:00] VITALS: BP 178/84; PULSE 89; RESP 18; TEMP 36.3; O2SAT 100
[2022-03-31] MEDS: Buprenorphine/Naloxone 2/0.5mg FILM 1 FILM SUBLINGUAL (18:22)
[2022-03-31] MEDS: traZODone HCL 50 MG TABLET PO (20:40)
[2022-03-31] MEDS: Cyclobenzaprine HCl 10 MG TABLET PO (20:40)
[2022-04-01] MEDS: Aspirin Enteric Coated 325 MG TABLET.DR PO ×2 (08:39→20:15)
[2022-04-01] MEDS: Buprenorphine/Naloxone 12/3 mg FILM 1 FILM SUBLINGUAL (08:40)
[2022-04-01] MEDS: buPROPion HCl XL 150 MG TAB.ER.24H PO (08:40)
[2022-04-01 08:41] VITALS: BP 134/82; PULSE 89; RESP 18; TEMP 36.4; O2SAT 96
[2022-04-01] MEDS: Cyclobenzaprine HCl 10 MG TABLET PO ×2 (12:15→20:16)
--- NOTE | 2022-04-01 17:16 | HO.PSYCHPN ---
Subjective Subjective Date of Service: 04/01/22 Reason For Visit: recurrent major depression opiate cocaine use diso Subjective Notes: Hanks Warning and Conditional Voluntary Interim History: Patient seen and discussed with team. Patient evaluated today and upon interview he reports Im good, I'm alive, i'm happy. He talked to his . Says I think the medications are working, feels he is on the right medications. Likes trazodone as a PRN and vistaril PRN. In the milieu, patient is safe and appropriate in behavior. Denies SI/SIB/HI upon inquiry. Denies irritability or assaultive ideation. Says he feels safe. Medication Compliance: Yes Side effects from medications: No Attending Groups: Intermittent Review of Systems Acute medical concerns: No Medical Review of Systems: unchanged Mental Status Exam Mental Status Exam Narrative: Pt is alert and oriented; behavior is cooperative, friendly, calm; dressed in casual attire, tattooed; adequate hygiene; mood is described as good and affect congruent, brighter; eye contact appropriate; Speech normal volume, rate and prosody and not pressured; no psychomotor retardation present; thought process is organized and goal directed; Thought content is on gratitude for family, pursuing sobriety; post discharge plans; otherwise pertinent to relevant topics and without any delusional content, paranoid ideations or grandiosity; denies any SI/HI. There is no evidence of perceptual disturbance and denies AVH. ?Patients insight and judgment are fair. Diagnostics Vital Signs (24Hr): Vital Signs - 24 hr 03/31/22 18:00 04/01/22 08:41 Temperature 97.3 F 97.6 F Pulse Rate 89 89 Respiratory Rate 18 18 Blood Pressure 178/84 H 134/82 Pulse Oximetry 100 96 Oxygen Delivery Method Room Air Room Air BMI result Body Mass Index 28.2 Labs Results: 03/26/22 21:31 03/26/22 21:31 Imaging Radiology Impressions: ITS Impressions Cervical Spine CT 03/26/22 22:47 IMPRESSION: 1. No acute intracranial pathology. 2. No CT evidence of acute cervical spine fracture or traumatic subluxation Head CT 03/26/22 22:47 IMPRESSION: 1. No acute intracranial pathology. 2. No CT evidence of acute cervical spine fracture or traumatic subluxation Abdomen/Pelvis CT 03/26/22 22:51 IMPRESSION: No acute traumatic finding of the chest, abdomen, or pelvis. No acute fractures are seen. Chest CT 03/26/22 22:51 IMPRESSION: No acute traumatic finding of the chest, abdomen, or pelvis. No acute fractures are seen. Medications Medications Current Medications Acetaminophen (Acetaminophen 325 Mg Tablet) 650 mg PO Q6H PRN PRN Reason: Headache/Pain Mild Scale (1-3) Last Admin: 03/30/22 10:07 Dose: 650 mg Al Hydroxide/Mg Hydroxide (Magnesium Hydrox/Alum Hydrox 30 Ml Oral.Susp) 30 ml PO Q6H PRN PRN Reason: Heartburn/Nausea Aspirin (Aspirin Enteric Coated 325 Mg Tablet.Dr) 325 mg PO BID [facility] Last Admin: 04/01/22 08:39 Dose: 325 mg Buprenorphine/Naloxone (Buprenorphine/Naloxone 12/3 Mg Film) 1 film SUBLINGUAL DAILY [facility] Last Admin: 04/01/22 08:40 Dose: 1 film Buprenorphine/Naloxone (Buprenorphine/Naloxone 2/0.5mg Film) 1 film SUBLINGUAL BID PRN PRN Reason: mod to severe pain Last Admin: 03/31/22 18:22 Dose: 1 film Bupropion HCl (Bupropion Hcl Xl 150 Mg Tab.Er.24h) 150 mg PO DAILY [facility] Last Admin: 04/01/22 08:40 Dose: 150 mg Clonidine HCl (Clonidine Hcl 0.1 Mg Tablet) 0.1 mg PO Q4H PRN; Protocol PRN Reason: withdrawal symptoms Cyclobenzaprine HCl (Cyclobenzaprine Hcl 10 Mg Tablet) 10 mg PO TID PRN PRN Reason: muscle cramps Last Admin: 04/01/22 12:15 Dose: 10 mg Dicyclomine HCl (Dicyclomine Hcl 10 Mg Capsule) 10 mg PO TID PRN PRN Reason: stomach cramps Gabapentin (Gabapentin 100 Mg Capsule) 100 mg PO TID PRN PRN Reason: mild pain Hydroxyzine HCl (Hydroxyzine Hcl 25 Mg Tablet) 25 mg PO Q6H PRN PRN Reason: Anxiety Last Admin: 03/27/22 18:53 Dose: 25 mg Loperamide HCl (Loperamide Hcl 2 Mg Capsule) 2 mg PO Q4H PRN PRN Reason: Loose Stool Last Admin: 03/29/22 06:29 Dose: 2 mg Magnesium Hydroxide (Milk Of Magnesia 30 Ml Oral.Susp) 30 ml PO DAILY PRN PRN Reason: Constipation Pharmacy Consult (Consult Rx Perform Med Rec) 1 each MISCELLANE ONCE PRN PRN Reason: Consult order Trazodone HCl (Trazodone Hcl 50 Mg Tablet) 50 mg PO BEDTIME PRN PRN Reason: Insomnia Last Admin: 03/31/22 20:40 Dose: 50 mg Allergies Allergies Allergy/AdvReac Type Severity Reaction Status Date / Time No Known Allergies Allergy Verified 03/26/22 20:42 [No Known Allergies*] Assessment & Plan Assessment & Plan (1) MDD (major depressive disorder), recurrent episode, severe: Status: Acute Code(s): F33.2 - Major depressive disorder, recurrent severe without psychotic features (2) Drug-induced psychotic disorder: Status: Acute Code(s): F19.959 - Other psychoactive substance use, unspecified with psychoactive substance-induced psychotic disorder, unspecified Plan pt is a 51 yo male with hx of depression and opiod and cocaine abuse/dependence who presents depressed, with SI and in opiate and cocaine withdrawal in face of marital strife and relapse. -most of depression seems to have originated from injury, struggles working, opiate/cocaine addiction and the problems it's caused with and family, culminating with deciding to leave him due to continued addiction -will support through detox; wants to get back on suboxone -will start Wellbutrin once withdrawal under control (process description writer discussed wellbutrin risks/side-effects and patient wants to start) 03/29 Depressed, tearful but no SI; feeling a little better. Appreciates Suboxone and wants to get on maintenance dose. Trying to be hopeful that he can pursue an stay sober. 03/30 mood significantly better, no SI, affect brighter and patient optimistic. Tolerating medications well 03/31 continue current treatment plan, mood remains good, no SI, patient optimistic and future oriented. 04/01 Does not want med changes, progressing back to baseline PLAN: cv q15 min Suboxone 12/3 mg daily Added Suboxone 2/0.5 mg b.i.d. p.r.n. for breakthrough pain wellburin xl 150mg Help establishing aftercare support for sobriety I spent minutes with the patient and/or on the patient floor today, greater than?50% of which was spent counseling/coordinating care. Patient educated on: medication risk/benefits and therapeutic strategies Reason for contiued inpatient stay Substantial Risk for: med/psych decompensation
[2022-04-01 18:00] VITALS: BP 125/65; PULSE 85; TEMP 36.9; O2SAT 99
[2022-04-01] MEDS: traZODone HCL 50 MG TABLET PO (20:16)
[2022-04-02 06:00] VITALS: BP 135/78; PULSE 88; RESP 18; TEMP 36.4; O2SAT 99
[2022-04-02 07:00] VITALS: BMI 27.8
[2022-04-02] MEDS: Aspirin Enteric Coated 325 MG TABLET.DR PO (08:31)
[2022-04-02] MEDS: Buprenorphine/Naloxone 12/3 mg FILM 1 FILM SUBLINGUAL (08:31)
[2022-04-02] MEDS: buPROPion HCl XL 150 MG TAB.ER.24H PO (08:31)
--- NOTE | 2022-04-02 15:48 | HO.PSYCHPN ---
Subjective Subjective Date of Service: 04/02/22 Reason For Visit: recurrent major depression opiate cocaine use diso Interim History: Dick is prepared for discharge. No current questions on medications, plan of care. No current symptoms he believes need to be addressed prior to discharge. Reports the admission went well and he is grateful to his team for their work with him. Medication Compliance: Yes Side effects from medications: No Attending Groups: Intermittent Review of Systems Acute medical concerns: No Medical Review of Systems: unchanged Mental Status Exam Mental Status Exam Patient Appearance: Appropriate Patient Orientation: Person, Place, Time and Situation Level of Consciousness: Alert Patient Behavior: Talkative and Good Eye Contact Mood Description: Appropriate Affect Description: Appropriate Patient Cognition Impaired: No Ability to Follow Directions: Good Speech Pattern: Spontaneous Speech Memory Description: Intact Hallucinations: None Delusions: Not Present Thought Process: Intact Thought Content: positive for Intact Judgement: Good Diagnostics Vital Signs (24Hr): Vital Signs - 24 hr 04/01/22 18:00 04/02/22 06:00 Temperature 98.4 F 97.5 F Pulse Rate 85 88 Respiratory Rate 18 Blood Pressure 125/65 135/78 Pulse Oximetry 99 99 Oxygen Delivery Method Room Air BMI result Body Mass Index 27.8 Labs Results: 03/26/22 21:31 03/26/22 21:31 Imaging Radiology Impressions: ITS Impressions Cervical Spine CT 03/26/22 22:47 IMPRESSION: 1. No acute intracranial pathology. 2. No CT evidence of acute cervical spine fracture or traumatic subluxation Head CT 03/26/22 22:47 IMPRESSION: 1. No acute intracranial pathology. 2. No CT evidence of acute cervical spine fracture or traumatic subluxation Abdomen/Pelvis CT 03/26/22 22:51 IMPRESSION: No acute traumatic finding of the chest, abdomen, or pelvis. No acute fractures are seen. Chest CT 03/26/22 22:51 IMPRESSION: No acute traumatic finding of the chest, abdomen, or pelvis. No acute fractures are seen. Medications Allergies Allergies Allergy/AdvReac Type Severity Reaction Status Date / Time No Known Allergies Allergy Verified 03/26/22 20:42 [No Known Allergies*] Assessment & Plan Assessment & Plan (1) MDD (major depressive disorder), recurrent episode, severe: Status: Acute Code(s): F33.2 - Major depressive disorder, recurrent severe without psychotic features (2) Drug-induced psychotic disorder: Status: Resolved Code(s): F19.959 - Other psychoactive substance use, unspecified with psychoactive substance-induced psychotic disorder, unspecified Plan pt is a 51 yo male with hx of depression and opiod and cocaine abuse/dependence who presents depressed, with SI and in opiate and cocaine withdrawal in face of marital strife and relapse. -most of depression seems to have originated from injury, struggles working, opiate/cocaine addiction and the problems it's caused with and family, culminating with deciding to leave him due to continued addiction -will support through detox; wants to get back on suboxone -will start Wellbutrin once withdrawal under control (data analyst report writer discussed wellbutrin risks/side-effects and patient wants to start) 03/29 Depressed, tearful but no SI; feeling a little better. Appreciates Suboxone and wants to get on maintenance dose. Trying to be hopeful that he can pursue an stay sober. 03/30 mood significantly better, no SI, affect brighter and patient optimistic. Tolerating medications well 03/31 continue current treatment plan, mood remains good, no SI, patient optimistic and future oriented. 04/02/22 Discharge PLAN: cv q15 min Suboxone 12/3 mg daily Added Suboxone 2/0.5 mg b.i.d. p.r.n. for breakthrough pain wellburin xl 150mg Help establishing aftercare support for sobriety I spent minutes with the patient and/or on the patient floor today, greater than?50% of which was spent counseling/coordinating care. Patient educated on: therapeutic strategies Informed Consent: understands Reason for contiued inpatient stay Substantial Risk for: stable for discharge
--- NOTE | 2022-04-06 10:48 | PM.PSYDC ---
DS: Providers Provider Date of Service: 04/02/22 Date of admission: 03/27/22 15:09 Date of discharge: 04/02/22 Primary care physician: SURESH Aguilera Attending physician on admission: Viral Ceron Attending physician on discharge: Viral Ceron DS: Diagnosis Discharge Diagnosis (1) MDD (major depressive disorder), recurrent episode, severe: Status: Acute (2) Drug-induced psychotic disorder: Status: Acute DS: Medications Discharge Medications Home Medications: Home Medications Medication Instructions Recorded Confirmed aspirin 325 mg tablet,delayed 1 tab PO BID 03/26/22 03/26/22 release gabapentin 100 mg capsule 1 cap PO TID 03/26/22 03/27/22 Previous Rx's Medication Instructions Recorded bupropion HCl 150 mg 24 hr tablet, 150 mg PO DAILY #30 tabs 04/02/22 extended release naloxone 4 mg/actuation nasal 4 mg intranasal Q2M PRN opioid 04/02/22 spray (Narcan) overdose #2 ea buprenorphine 12 mg-naloxone 3 mg 1 film sublingual DAILY 11 days 04/03/22 sublingual film (Suboxone) #11 ea Mental Status Exam Mental Status Exam Narrative: Pt is alert and oriented; behavior is cooperative, friendly, calm; dressed in casual attire, tattooed; adequate hygiene; mood is described as good and affect congruent, brighter; eye contact appropriate; Speech normal volume, rate and prosody and not pressured; no psychomotor retardation present; thought process is organized and goal directed; Thought content is on gratitude for family, pursuing sobriety; post discharge plans; otherwise pertinent to relevant topics and without any delusional content, paranoid ideations or grandiosity; denies any SI/HI. There is no evidence of perceptual disturbance and denies AVH. ?Patients insight and judgment are fair. Data Imaging Diagnostic Imaging Impressions Cervical Spine CT 03/26/22 22:47 IMPRESSION: 1. No acute intracranial pathology. 2. No CT evidence of acute cervical spine fracture or traumatic subluxation Head CT 03/26/22 22:47 IMPRESSION: 1. No acute intracranial pathology. 2. No CT evidence of acute cervical spine fracture or traumatic subluxation Abdomen/Pelvis CT 03/26/22 22:51 IMPRESSION: No acute traumatic finding of the chest, abdomen, or pelvis. No acute fractures are seen. Chest CT 03/26/22 22:51 IMPRESSION: No acute traumatic finding of the chest, abdomen, or pelvis. No acute fractures are seen. DS: Summary Hospital Course Hospital Course: pt is a 51 yo male with hx of depression and opiod and cocaine abuse/dependence who presents depressed, with SI and in opiate and cocaine withdrawal in face of marital strife and relapse. On admission, pt depressed, tearful, in withdrawal, but SI resolved. Pt detoxed w/out incident and (re) started on Suboxone to good effect. He was then started on Wellbutrin to good effect. Pt reported mood better and feeling very grateful he came to unit and did not self harm; pt had good phone call w/ and expressed much gratitude for her, relieved that they reconciled. Pt remained in good mood with noticeably brighter affect and with depression resolved; no SI. Patient discussed struggles with sobriety and plan to engage in outpt treatment with his brother who is is sustained remission. Pt asked for discharge. He feels love for family kept him safe in the past and that it will continue to do so, however, he agrees to reach out early on if starting to feel unsafe. Pt is returning to live with his supportive . He is future oriented and optimistic about staying sober. Pt felt ready for discharge and to continue tx in the community. While he remains vulnerable to relapse and mood liability, this is a chronic issue of which pt is aware and for which he says he'll continue to seek treatment. He was not in imminent risk of harm to self or others and request for discharge honored. Time spent discussing smoking cessation with patient: 3 to 10 minutes Status at Discharge Functional status at discharge: uses cane/walker Overall status at discharge: patient is back to baseline Time Spent with Patient Time attestation: Total time spent providing and/or coordinating discharge services: Time spent: Less than 30 minutes Discharge Plan Discharge Patient Disposition: Home, Self-Care Discharge Diagnosis: Severe Recurrent Major Depression Polysubstance Abuse Back Pain Referrals: Suboxone: Adrianna Kan [Other] - 04/03/22 1:00 pm (This appointment is in-person at the above location. Your initial appointment will take about 1 hour. Please bring an ID, insurance card, and discharge paperwork with you) Psychiatric Med Management: Alexandre Springer APRN [Other] - 04/27/22 1:45 pm (This is a virtual Telehealth appointment. You will be sent a text at the time of your appointment to connect to the appointment) Therapy: [facility] [Other] - 1 Week (You have been added to the waitlist for therapy. The waitlist is about 4-6 weeks at this time and you will be called to schedule a therapy appointment once a therapist has been assigned) Narcotics Anonymous (NA) meetings [Other] - 1 Week ([email or web address]://[email or web address].[email or web address]/ Please use the above link to find local NA meetings in the [place] area) Monisha Christie PA [Primary Care Provider] - 04/14/22 3:00 pm (WILL BE SEEING LELA CHRISTIE INSTEAD OF MONISHA CHRISTIE) Discharge Medications: New bupropion HCl 150 mg Tablet Extended Release 24 Hr 150 mg PO DAILY Qty: 30 0RF naloxone [Narcan] 4 mg/actuation spray,non-aerosol 4 mg intranasal Q2M PRN (Reason: opioid overdose) Qty: 2 0RF Rx Instructions: spray 1 dose into ONE nostril; alternate nostrils w each dose until help arrives Continued aspirin 325 mg tablet,delayed release (DR/EC) 1 tab PO BID gabapentin 100 mg capsule 1 cap PO TID No Action buprenorphine-naloxone [Suboxone] 12-3 mg film 1 film sublingual DAILY 11 Days Qty: 11 0RF Discharge Orders: Discharge Order (Routine); Ordered 04/02/22 Ordered By: Leida Paredes Diet: Advance to usual diet Activity on Discharge: As tolerated Stand Alone Forms: Patient Portal Discharge page, Community Support Care Plan Goals: Maintain mood and safe behavior Take medications as prescribed Practice coping skills Continue with out patient provicers and reach out as needed Health Concerns: Mood and behavior stabilization Plan of Treatment: Follow up with PCP, psychiatric providers and other out patient providers Take medications as prescribed Assessment: Risk assessment at the time of discharge: Pt interviewed prior to discharge and found to be fully oriented and without any SI or HI. Pt has insight and demonstrates good judgment in terms of wanting to pursue treatment. Pt is not in imminent risk of harm to self or others and has a safety plan that included presenting to the closest ER or calling 911 if feeling unsafe. Pt has been observed closely by nursing and unit staff throughout admission. Pt has not engaged in any behaviors that suggest dangerousness to self or others and has demonstrated appropriate behaviors and impulse control. Discharge Date/Time: 04/02/22 13:54
== END 2022-04-02 13:54 | disposition home or self-care (01) | DRG 751 ==
LOC: HO.ED 03-27 12:48 → HO.PM5 03-27 15:20
PROVIDERS: Clinical Nurse Specialist Psychiatric/Mental Health, Adult; Physician Assistant; Admitting Provider Psychiatry & Neurology Psychiatry; Emergency Provider Emergency Medicine; PCP Physician Assistant Medical; Visit Provider Psychiatry & Neurology Psychiatry
DX: F33.2 Major depressive disorder, recurrent severe without psychotic features (principal); R45.851 Suicidal ideations; F11.20 Opioid dependence, uncomplicated; F14.10 Cocaine abuse, uncomplicated; Z20.822 Contact with and (suspected) exposure to COVID-19; Z79.82 Long term (current) use of aspirin; Z79.899 Other long term (current) drug therapy
CPT/HCPCS: 36415; 70450; 71250; 72125; 74176; 80053; 80061; 80307; 81003; 82077; 82248; 82607; 82746; 83036; 83735; 84439; 84443; 85025; 87635; 93005; 99285

== ENCOUNTER → 2022-04-03 13:02 | Outpatient (BNVA) | payer BC, SELFPAY | PROVIDERS: PCP Physician Assistant Medical; Visit Provider Nurse Practitioner Psychiatric/Mental Health | DX: F11.20 Opioid dependence, uncomplicated (principal); Z51.81 Encounter for therapeutic drug level monitoring; Z79.899 Other long term (current) drug therapy | CPT/HCPCS: 80305 ==

== ENCOUNTER → 2022-04-20 14:08 | Outpatient (BNVA) | payer BC, SELFPAY | PROVIDERS: PCP Physician Assistant Medical; Visit Provider Nurse Practitioner Psychiatric/Mental Health | DX: Z51.81 Encounter for therapeutic drug level monitoring (principal); F11.20 Opioid dependence, uncomplicated | CPT/HCPCS: 80305 ==

== ENCOUNTER → 2022-05-07 16:05 | Outpatient (BNVA) | payer BC, SELFPAY | PROVIDERS: PCP Physician Assistant Medical; Visit Provider Nurse Practitioner Psychiatric/Mental Health | DX: Z51.81 Encounter for therapeutic drug level monitoring (principal); F11.20 Opioid dependence, uncomplicated | CPT/HCPCS: 80305 ==

== ENCOUNTER 2023-05-30 00:47 | Emergency (ER) | payer SELFPAY ==
--- NOTE | ~2023-05-30 | XR_ITS ---
EXAMINATION: XR FACIAL BONES CLINICAL INFORMATION: Right facial injury COMPARISON: None available. TECHNIQUE: 5 views of the facial bones were obtained. FINDINGS: No acute fracture is seen. No appreciable focal soft tissue abnormality. Paranasal sinuses and mastoid air cells appear well-aerated bilaterally. XR/XR facial bones min 3V IMPRESSION: No acute findings identified.
[2023-05-30 01:00] VITALS: BP 169/86; PULSE 81; RESP 18; TEMP 37; O2SAT 99; BMI 26.6
[2023-05-30] MEDS: Ibuprofen 600 MG TABLET PO (01:10)
[2023-05-30] MEDS: Acetaminophen 325 MG TABLET 650 MG PO (01:11)
[2023-05-30 01:23] LABS: MANUAL DIFF FLAG NO
[2023-05-30 01:24] LABS: Basophils Absolute Auto 0.1 X10*3/uL (0.0-0.2); Basophils Percent Auto 0.5 % (0-2); Eosinophils Absolute Auto 0.2 X10*3/uL (0.0-0.4); Eosinophils Percent Auto 1.9 % (0-4); Hemoglobin 11.6 g/dl (14.0-18.0); Imm Gran Abs Auto 0.02 X10*3/uL (0.00-0.03); Imm Gran Pct Auto 0.2 % (0.0-0.4); Lymphocytes Absolute Auto 1.4 X10*3/uL (1.2-4.9); Lymphocytes Percent Auto 11.8 % (20-40); Mean Corpuscular HGB Conc 32.2 g/dl (31.0-36.0); Mean Corpuscular Hemoglobin 27.2 pg (27.0-33.0); Mean Corpuscular Volume 84.5 fL (80.0-98.0); Mean Platelet Volume 9.2 fL (9.4-12.4); Monocytes Absolute Auto 0.9 X10*3/uL (0.1-1.2); Monocytes Percent Auto 7.6 % (2-11); Neutrophils Absolute Auto 8.9 x10*3/uL (2.0-8.3); Platelet Count 278 X10*3/uL (160-400); Red Blood Count 4.26 X10*6/uL (4.60-5.80); Red Cell Distribution Width 13.3 % (11.0-16.0); White Blood Count 11.4 X10*3/uL (4.8-10.8)
[2023-05-30 01:38] LABS: Alanine Aminotransferase 29 U/L (0-40); Albumin Level 3.9 g/dL (3.5-5.0); Alkaline Phosphatase 76 U/L (39-117); Anion Gap 14 (12-20); Aspartate Amino Transferase 28 U/L (5-37); Bilirubin Total 0.6 mg/dL (0.0-1.0); Blood Urea Nitrogen 18 mg/dL (9-16); Carbon Dioxide 25 mmol/L (22-29); Chloride 107 mmol/L (96-108); Estimated Glomerular Filt Rate > 60; Glucose Random 120 mg/dL (60-115); Potassium 3.5 mmol/L (3.3-5.1); Sodium 142 mmol/L (135-145)
[2023-05-30 06:55] VITALS: BP 158/84; PULSE 78; RESP 18; O2SAT 99
== END 2023-05-30 07:24 | disposition left against medical advice (07) ==
PROVIDERS: Emergency Provider Emergency Medicine
DX: K08.89 Other specified disorders of teeth and supporting structures (principal); Z79.899 Other long term (current) drug therapy
CPT/HCPCS: 36415; 70150; 80053; 85025; 99282; 99283

== ENCOUNTER 2023-12-17 19:39 | Emergency (ER) | payer MEDICAID, SELFPAY ==
--- NOTE | ~2023-12-17 | XR_ITS ---
EXAMINATION: XR KNEE, LEFT CLINICAL INFORMATION: Pain and difficulty ambulating COMPARISON: None available. TECHNIQUE: Four views of the left knee. FINDINGS: Small joint effusion. Extensive tricompartmental degenerative changes are seen with joint space loss, osteophyte formation, and subchondral sclerosis more so in the medial compartment. I do not appreciate any acute fracture or dislocation. No bony destructive lesions or periosteal reaction. XR/XR knee LT 3V IMPRESSION: Extensive tricompartmental degenerative changes but no acute fracture or dislocation.
--- NOTE | 2023-12-17 20:01 | ED_ITS ---
HPI - General Adult General Chief complaint: Extremity Injury, Lower Stated complaint: Knee, back, and hip pain Time Seen by Provider: 12/17/23 20:42 Source: patient Mode of arrival: ambulatory Limitations: no limitations History of Present Illness HPI narrative: 52 yo male with PMH of opiate use disorder, depression, here with c/o L knee pain just got back on [facility] here with c/o L knee effusion, pain denies trauma. She has no redness, fevers or any other issues. Has not seen orthopedics. MD complaint: knee pain Onset (ago): week(s) Location: left and lower extremity Radiation: non-radiation Severity: moderate Quality: aching Pain Consistency: constant Relieving factors: rest Exacerbating factors: movement Associated symptoms: denies other symptoms Treatments prior to arrival: none Related Data Home Medications ?Medication ?Instructions ?Recorded ?Confirmed aspirin 325 mg tablet,delayed 1 tab PO BID 03/26/22 03/26/22 release gabapentin 100 mg capsule 1 cap PO TID 03/26/22 03/27/22 Previous Rx's ?Medication ?Instructions ?Recorded bupropion HCl 150 mg 24 hr tablet, 150 mg PO DAILY #30 tabs 04/02/22 extended release naloxone 4 mg/actuation nasal 4 mg intranasal Q2M PRN opioid 04/02/22 spray (Narcan) overdose #2 ea buprenorphine 12 mg-naloxone 3 mg 1 film sublingual DAILY 14 days 05/07/22 sublingual film (Suboxone) #14 ea cyclobenzaprine 10 mg tablet 10 mg PO TID PRN muscle spasm #20 12/17/23 tabs diclofenac sodium 1 % topical gel 2 g topical QID PRN pain #100 grams 12/17/23 (Aleve (diclofenac)) Allergies Allergy/AdvReac Type Severity Reaction Status Date / Time Seasonal Allergies Allergy Runny Nose Verified 12/17/23 20:04 Review of Systems Review of Systems: Constitutional : No Fever, No Chills ENT/Mouth : No Ear Pain, No Hoarseness, No sore throat Eyes: No Eye Pain, No Swelling, No Redness, No Foreign Body Cardiovascular : No Chest Pain, No SOB Respiratory : No Cough, No Dyspnea Gastrointestinal : No Nausea, No Vomiting, No Diarrhea, No abdominal Pain Genitourinary : No Dysuria, No Hematuria Musculoskeletal : positive joint pain, No Myalgias, pos Joint Swelling Skin : No Skin lacerations, No rash Neuro : No Weakness, No Numbness, No Loss of Consciousness, No Dizziness, No Headache Psych : No Anxiety/Panic, No Depression All other systems reviewed and are negative [facility] Past Medical History Attestation statement: The following information was validated with the patient. Source: old records reviewed Medical History MDD (major depressive disorder), recurrent episode, severe Fall Social History Social History Household Members: Spouse Housing: House Do you presently have visiting nurse or other home services: No Alcohol intake: unknown Patient Tobacco Use Status: Never used Tobacco Second Hand Smoke Exposure: No Substance Use Type: Crack/Cocaine and Painkillers Advance Directives: No Advance Directives Information Provided: No service: No Sexual orientation: Straight/Heterosexual Physical Exam ED Vital Signs: Vital Signs - 24 hr 12/17/23 20:03 12/17/23 21:35 12/17/23 21:46 Temperature 97.9 F 97.8 F 97.8 F Pulse Rate 78 76 76 Respiratory Rate 18 19 19 Blood Pressure 142/94 H 146/88 H 146/88 H Pulse Oximetry 98 98 98 Oxygen Delivery Method Room Air Room Air BMI result Body Mass Index 31.2 Appearance: Alert. Oriented X3. No acute distress. Eyes: Pupils equal, round and reactive to light. ENT: Pharynx normal. Neck: Normal inspection. Neck supple. CVS: Pulses normal. Respiratory: No respiratory distress. Abdomen: atraumatic Skin: Skin warm and dry. Normal skin color. Normal skin turgor. Extremities: No lower extremity edema. L knee ttp along patella and has small joint effusion no erythema distal NV intact no rash no warmth Neuro: Oriented X 3. No motor deficit. No sensory deficit. Course Course Course Narrative: This is a rapid medical exam performed by Shanta Hough NP: Additional HPI, ROS, PE not included below will be deferred to primary provider. Patient is a 52-year-old male with history of opioid use disorder, MDD, back pain presenting to the ED with complaint of left knee pain. States it's bone on bone. Pain worsening this week, denies any known recent injury. States pain is impairing ambulation. Patient able to ambulate into triage from waiting room. Plan: x-ray Medications Administered Discontinued Medications Generic Name Dose Route Start Last Admin Trade Name Freq PRN Reason Stop Dose Admin Diazepam 5 mg 12/17/23 21:01 12/17/23 21:08 Diazepam 5 Mg Tablet PO 12/17/23 21:02 5 mg ONCE ONE Administration Medical Decision Making Medical Decision Making MDM Narrative: 52 yo male with PMH of opiate use disorder, depression here with c/o atraumatic L knee pain has been chronic for him at this time c/o L knee pain and swelling - no signs of redness, no fevers no warmth will obtain xrays and start on diclofenac and muscle relaxers - avoid narcotics, sloane wrap and refer to orthopedics. Differential Diagnosis Differential Diagnoses: The differential diagnosis associated with the presentation includes arthralgia, no redness, no warmth no signs of infection to suggest septic joint Independent Interpretation I performed an independent interpretation of an: Plain X-Ray (arthritis) Radiology Impression Discussion of test interpretation with radiology: I have reviewed the radiologist's reading. Independent Historian Clinical information obtained from an independent historian. History obtained from or confirmed by: Other External Record Review External record reviewed: Office record Prescription Management I considered prescription management with: Pain Medication and Other Discharge Plan Discharge Clinical Impression: Arthralgia of knee, left Patient Disposition: Home, Self-Care Instructions: Knee Pain (ED), Arthralgia (ED) Additional Instructions: xray shows arthritis wear sloane wrap please return for worsening pain, redness, swelling or any other concerns please follow up with the orthopedics number given to you Prescriptions: New diclofenac sodium [Aleve (diclofenac)] 1 % gel 2 g topical QID PRN (Reason: pain) Qty: 100 0RF Rx Instructions: apply to single elbow, wrist or hand; for hand includes palm/fingers/back of hand cyclobenzaprine 10 mg tablet 10 mg PO TID PRN (Reason: muscle spasm) Qty: 20 0RF No Action aspirin 325 mg tablet,delayed release (DR/EC) 1 tab PO BID gabapentin 100 mg capsule 1 cap PO TID bupropion HCl 150 mg Tablet Extended Release 24 Hr 150 mg PO DAILY Qty: 30 0RF naloxone [Narcan] 4 mg/actuation spray,non-aerosol 4 mg intranasal Q2M PRN (Reason: opioid overdose) Qty: 2 0RF Rx Instructions: spray 1 dose into ONE nostril; alternate nostrils w each dose until help arrives buprenorphine-naloxone [Suboxone] 12-3 mg film 1 film sublingual DAILY 14 Days Qty: 14 0RF Referrals: Aliyah Cortés PA-C [Physician In[employer]] - (orthopedics will need to call to schedule) Interventions: ED Discharge Assessment Last Done: 12/17/23 21:46 Discharge Date/Time: 12/17/23 21:48 Print Language: Bengali
[2023-12-17 20:03] VITALS: BP 142/94; PULSE 78; RESP 18; TEMP 36.6; O2SAT 98; BMI 31.2
[2023-12-17] MEDS: diazePAM 5 MG TABLET PO (21:08)
[2023-12-17 21:35] VITALS: BP 146/88; PULSE 76; RESP 19; TEMP 36.6; O2SAT 98
[2023-12-17 21:46] VITALS: BP 146/88; PULSE 76; RESP 19; TEMP 36.6; O2SAT 98
== END 2023-12-17 21:48 | disposition home or self-care (01) ==
PROVIDERS: Emergency Provider Emergency Medicine
DX: M25.562 Pain in left knee (principal); Z79.899 Other long term (current) drug therapy
CPT/HCPCS: 73562; 99282; 99283

== ENCOUNTER 2024-05-21 04:02 | Emergency (ER) | payer OTHER, SELFPAY ==
[2024-05-21 04:18] VITALS: BP 159/81; PULSE 95; RESP 16; TEMP 36.4; O2SAT 99; BMI 32.0
[2024-05-21 04:22] VITALS: BP 159/81; PULSE 95; RESP 16; TEMP 36.4; O2SAT 99
--- NOTE | 2024-05-21 04:29 | ED_ITS ---
HPI - Extremity Problem General Chief complaint: Extremity Problem Stated complaint: left knee swollen. right leg has a red blister Time Seen by Provider: 05/21/24 04:28 Source: patient Mode of arrival: ambulatory Limitations: no limitations History of Present Illness ED Provider: jose VIRAMONTES Narrative: While sleeping patient noticed a small pinch on his right leg woke up from sleep with small bite krista with redness also has chronic left knee swelling Related Data Home Medications ?Medication ?Instructions ?Recorded ?Confirmed aspirin 325 mg tablet,delayed 1 tab PO BID 03/26/22 03/26/22 release gabapentin 100 mg capsule 1 cap PO TID 03/26/22 03/27/22 Previous Rx's ?Medication ?Instructions ?Recorded bupropion HCl 150 mg 24 hr tablet, 150 mg PO DAILY #30 tabs 04/02/22 extended release naloxone 4 mg/actuation nasal 4 mg intranasal Q2M PRN opioid 04/02/22 spray (Narcan) overdose #2 ea buprenorphine 12 mg-naloxone 3 mg 1 film sublingual DAILY 14 days 05/07/22 sublingual film (Suboxone) #14 ea cyclobenzaprine 10 mg tablet 10 mg PO TID PRN muscle spasm #20 12/17/23 tabs diclofenac sodium 1 % topical gel 2 g topical QID PRN pain #100 grams 12/17/23 (Aleve (diclofenac)) cephalexin 500 mg capsule 500 mg PO QID 10 days #40 caps 05/21/24 doxycycline hyclate 100 mg tablet 100 mg PO BID #20 tabs 05/21/24 ibuprofen 600 mg tablet 600 mg PO Q6H PRN fever or pain 05/21/24 #30 tabs Allergies Allergy/AdvReac Type Severity Reaction Status Date / Time Seasonal Allergies Allergy Runny Nose Verified 05/21/24 04:20 Review of Systems 2 Review of Systems: Yes all other systems are reviewed and are negative PMFSH Past Medical History Medical History MDD (major depressive disorder), recurrent episode, severe Fall Social History Social History Household Members: Spouse Housing: House Do you presently have visiting nurse or other home services: No Alcohol intake: unknown Patient Tobacco Use Status: Never used Tobacco Smoked in Last 30 Days: No Second Hand Smoke Exposure: No Use of substances other than those prescribed or required for medical reasons: No Substance Use Type: Crack/Cocaine and Painkillers Advance Directives: No Do you have a plan to hurt others: No Plan service: No Sexual orientation: Straight/Heterosexual Physical Exam 2 Vital Signs: Vital Signs: Last Vital Signs Temp 97.6 F 05/21/24 05:08 Pulse 95 05/21/24 05:08 Resp 16 05/21/24 05:08 BP 159/81 H 05/21/24 05:08 Pulse Ox 99 05/21/24 05:08 O2 Del Method Room Air 05/21/24 05:08 BMI result Body Mass Index 32.0 Extrem: Ankle/foot/toe images: 1. Erythema and slight swelling Medications Administered Discontinued Medications Generic Name Dose Route Start Last Admin Trade Name Freq PRN Reason Stop Dose Admin Cephalexin HCl 500 mg 05/21/24 04:39 05/21/24 04:47 Cephalexin 500 Mg Capsule PO 05/21/24 04:40 500 mg ONCE ONE Administration Doxycycline Monohydrate 100 mg 05/21/24 04:39 05/21/24 04:47 Doxycycline Monohydrate 100 Mg Capsule PO 05/21/24 04:40 100 mg ONCE ONE Administration Ibuprofen 600 mg 05/21/24 04:39 05/21/24 04:47 Ibuprofen 600 Mg Tablet PO 05/21/24 04:40 600 mg ONCE ONE Administration Medical Decision Making Medical Decision Making [facility] Narrative: Patient with likely insect on the right leg with chronic left knee arthritis prescribe cephalexin and doxycycline Discharge Plan Discharge Clinical Impression: Infected insect bite Patient Disposition: Home, Self-Care Instructions: Cellulitis (ED) Additional Instructions: Take antibiotic as prescribed Ibuprofen for pain Report if swelling gets worse or increased redness Prescriptions: New cephalexin 500 mg capsule 500 mg PO QID 10 Days Qty: 40 0RF ibuprofen 600 mg tablet 600 mg PO Q6H PRN (Reason: fever or pain) Qty: 30 0RF doxycycline hyclate 100 mg tablet 100 mg PO BID Qty: 20 0RF No Action aspirin 325 mg tablet,delayed release (DR/EC) 1 tab PO BID gabapentin 100 mg capsule 1 cap PO TID bupropion HCl 150 mg Tablet Extended Release 24 Hr 150 mg PO DAILY Qty: 30 0RF naloxone [Narcan] 4 mg/actuation spray,non-aerosol 4 mg intranasal Q2M PRN (Reason: opioid overdose) Qty: 2 0RF Rx Instructions: spray 1 dose into ONE nostril; alternate nostrils w each dose until help arrives diclofenac sodium [Aleve (diclofenac)] 1 % gel 2 g topical QID PRN (Reason: pain) Qty: 100 0RF Rx Instructions: apply to single elbow, wrist or hand; for hand includes palm/fingers/back of hand cyclobenzaprine 10 mg tablet 10 mg PO TID PRN (Reason: muscle spasm) Qty: 20 0RF buprenorphine-naloxone [Suboxone] 12-3 mg film 1 film sublingual DAILY 14 Days Qty: 14 0RF Interventions: ED Discharge Assessment Last Done: 05/21/24 05:08 Discharge Date/Time: 05/21/24 05:08 Print Language: Hungarian
[2024-05-21] MEDS: Ibuprofen 600 MG TABLET PO (04:47)
[2024-05-21] MEDS: cephALEXin 500 MG CAPSULE PO (04:47)
[2024-05-21] MEDS: Doxycycline Monohydrate 100 MG CAPSULE PO (04:47)
--- OUTSIDE RECORDS SUMMARY | 2024-05-21 05:06 | XMS_ITS | Continuity of Care Document ---
Author Organization [facility] Address [address] [place] [address]- Care Team Providers Care Graphite Mill Operator Name Role Phone Wes Vickers Primary Care Physician [id number] Date(s): 02/04/22 - 03/06/22 [facility] [address] [place] [address]- Allergies, Adverse Reactions, Alerts No Known Allergies Medications Nasonex 50 mcg/inh nasal spray 1 sprays, Nares, Both, Daily, PRN Other, # 17 Gm, 0 Refills, Maintenance, 04/05/17 15:00:55, [place] Start Date: 04/05/17 Status: Ordered ZyrTEC 10 mg oral tablet 1 tablet = 10 mg, By Mouth, Daily, PRN Other, 0 Refills, Maintenance, 04/05/17 14:59:02 Start Date: 04/05/17 Status: Ordered
--- OUTSIDE RECORDS SUMMARY | 2024-05-21 05:07 | XMS_ITS | Continuity of Care Document ---
Author Organization [facility] Address [address] [place] [address]- Care Team Providers Care Station Installation Supervisor Name Role Phone Wes Vickers Primary Care Physician [phone] [place] [facility] [place] 04/09/22 [facility] [address] [place] [address] [place] Attending Physician: Yuli Baltazar Admitting Physician: Yuli Baltazar Referring Physician: trYuli Allergies, Adverse Reactions, Alerts No Known Allergies Medications Nasonex 50 mcg/inh nasal spray 1 sprays, Nares, Both, Daily, PRN Other, # 17 Gm, 0 Refills, Maintenance, 04/05/17 15:00:55, [place] Start Date: 04/05/17 Status: Ordered ZyrTEC 10 mg oral tablet 1 tablet = 10 mg, By Mouth, Daily, PRN Other, 0 Refills, Maintenance, 04/05/17 14:59:02 Start Date: 04/05/17 Status: Ordered Problem List Condition Effective Dates Status Health Status Inform ant Normocytic anemia(Confirmed) Active Osteoarthritis of knee(Confirmed) Active Obese class I(Confirmed) Active Opioid dependence in remission(Confirmed) Active Social History Social History Type Response Tobacco Other: Former smoker . Sex Care Team Personnel Name: Wes Vickers Address: [address] [place] [id number]
--- OUTSIDE RECORDS SUMMARY | 2024-05-21 05:07 | XMS_ITS | Continuity of Care Document ---
Author Organization [facility] ter Address [address] [place] [phone]- Care Team Providers Care Lead Performance Support Analyst Name Role Phone Wes Vickers Primary Care Physician Encounter [facility] [place] Date(s): 12/08/21 - 03/22/[address] [id number] Attending Physician: Danny Groves MD Referring Physician: Danny Groves MD Allergies, Adverse Reactions, Alerts No Known Allergies Medications Nasonex 50 mcg/inh nasal spray 1 sprays, Nares, Both, Daily, PRN Other, # 17 Gm, 0 Refills, Maintenance, 04/05/17 15:00:55, [place] Start Date: 04/05/17 Status: Ordered ZyrTEC 10 mg oral tablet 1 tablet = 10 mg, By Mouth, Daily, PRN Other, 0 Refills, Maintenance, 04/05/17 14:59:02 Start Date: 04/05/17 Status: Ordered Problem List Condition Effective Dates Status Health Status Inform ant Normocytic anemia(Confirmed) Active Osteoarthritis of knee(Confirmed) Active Opioid dependence in remission(Confirmed) Active Severe obesity(Confirmed) Active Social History Social History Type Response Tobacco Other: Former smoker . Sex
--- OUTSIDE RECORDS SUMMARY | 2024-05-21 05:07 | XMS_ITS | Continuity of Care Document ---
Author Organization [facility] ter Address [address] [place] [address]- Care Team Providers Care Leather Finisher Name Role Phone Wes Vickers Primary Care Physician [phone] Encounter [facility] [place] Date(s): 03/10/22 - 04/09/[address] [id number]- [place] Attending Physician: Yuli Baltazar Admitting Physician: Yuli Baltazar Referring Physician: AdmtrYuli Allergies, Adverse Reactions, Alerts No Known Allergies Medications Nasonex 50 mcg/inh nasal spray 1 sprays, Nares, Both, Daily, PRN Other, # 17 Gm, 0 Refills, Maintenance, 04/05/17 15:00:55, [place] Start Date: 04/05/17 Status: Ordered ZyrTEC 10 [...] Care Team Personnel Name: Wes Vickers Address: [address] [place] [id number]
--- OUTSIDE RECORDS SUMMARY | 2024-05-21 05:07 | XMS_ITS | Continuity of Care Document ---
Author Organization [facility] Address [address] [place] [address]- Care Team Providers Care Bevel Polisher Name Role Phone Wes Vickers Primary Care Physician [phone] Encounter [facility] [place] [place] [id number] Date(s): 06/19/21 - 07/19/21 [facility] [address] [place] [address]- Attending Physician: Yuli Baltazar Admitting Physician: Yuli Baltazar Referring Physician: Yuli Baltazar Allergies, Adverse Reactions, Alerts Substance Reaction Severity Status NKA Active Medications Ibuprofen 800 mg, By Mouth, Every 8 hours, PRN, Refills 0, Maintenance, pain, 04/05/17 14:58:07 Start Date: 04/05/17 Status: Ordered Nasonex 50 mcg/inh nasal spray 1 sprays, Nares, Both, Daily, PRN Other, # 17 Gm, 0 Refills, Maintenance, 04/05/17 15:00:55, [place] Start Date: 04/05/17 Status: Ordered ZyrTEC 10 mg oral tablet 1 tablet = 10 mg, By Mouth, Daily, PRN Other, 0 Refills, Maintenance, 04/05/17 14:59:02 Start Date: 04/05/17 Status: Ordered
--- OUTSIDE RECORDS SUMMARY | 2024-05-21 05:07 | XMS_ITS | Continuity of Care Document ---
Author Organization [facility] Address [address] [place] [address]- Care Team Providers Care Senior Recruitment Consultant Name Role Phone Wes Vickers Primary Care Physician [place] [facility] [place]21 [facility] [address] [place], [place] [address] Attending Physician: Yuli Baltazar Admitting Physician: Yuli Baltazar Referring Physician: Yuli Baltazar Allergies, Adverse Reactions, Alerts No Known Allergies Medications Nasonex 50 mcg/inh nasal spray 1 sprays, Nares, Both, Daily, PRN Other, # 17 Gm, 0 Refills, Maintenance, 04/05/17 15:00:55, [place] Start Date: 04/05/17 Status: Ordered ZyrTEC 10 mg oral tablet 1 tablet = 10 mg, By Mouth, Daily, PRN Other, 0 Refills, Maintenance, 04/05/17 14:59:02 Start Date: 04/05/17 Status: Ordered
--- OUTSIDE RECORDS SUMMARY | 2024-05-21 05:07 | XMS_ITS | Continuity of Care Document ---
Author Organization [facility] ter Address [address] [place] [address]- Care Team Providers Care Lighting Designer Name Role Phone Wes Vickers Primary Care Physician [phone] [place] [facility] [place] 06[place] - 06/03/[address] [address]- Discharge Disposition: A-D/C Walkout Attending Physician: Not on Staff, Attending MD Admitting Physician: Not on Staff, Admitting MD Referring Physician: Not on Staff, Referring MD Allergies, Adverse Reactions, Alerts No Known Allergies Medications Nasonex 50 mcg/inh nasal spray 1 sprays, Nares, Both, Daily, PRN Other, # 17 Gm, 0 Refills, Maintenance, 04/05/17 15:00:55, [place] Start Date: 04/05/17 Status: Ordered PEG-3350 with Electrolytes (Eqv-NuLYTELY) oral powder for reconstitution See Instructions, Mixpowder with waer according to the product label. Follow the [facility] instructions stating when to drink the prep fljuidon the evening before the colonoscopy. 8oz every 20 minutes, # 1 each, 0 Refills, Maintenance, 05/02/22 20:32... Start Date: 05/02/22 Status: Ordered ZyrTEC 10 mg oral tablet 1 tablet = 10 mg, By Mouth, Daily, PRN Other, 0 Refills, Maintenance, 04/05/17 14:59:02 Start Date: 04/05/17 Status: Ordered Problem List Condition Confirmation Course Effective Dates Status H ealth Status Informant Normocytic anemia Confirmed Active Osteoarthritis of knee Confirmed Active Obese class I Confirmed Active Opioid dependence in remission Confirmed Active Vital Signs Most recent to oldest [Reference Range]: 1 Height 168 cm (06/03/23 9:08 AM) Oxygen Saturation [94-100 %] 100 % (06/03/23 9:08 AM) Blood Pressure [90-138/55-84 mm Hg] 148/ 98mm Hg *H* (06/03/23 9:08 AM) Temperature [96.8-100.4 DegF] 98.7 DegF (06/03/23 9:08 AM) Mode of Delivery (Oxygen) Room air (06/03/23 9:08 AM) Blood pressure sites Arm, right (06/03/23 9:08 AM) Temperature Route Oral (06/03/23 9:08 AM) Dry Weight 77.5 kg (06/03/23 9:08 AM) Social History Social History Type Response Tobacco Other: Former smoker . Sex Patient Care team information Care Team Personnel Name: Wes Vickers Position: Reference Physician Member Role: PCP Address: Address: [address] [place] [address]- Name: Kanika Milian RN Position: Susan RN Member Role: Primary Care Nurse Care Team Related Persons Name: JAMES BOYD Address: home [address] [place] [address]
--- OUTSIDE RECORDS SUMMARY | 2024-05-21 05:07 | XMS_ITS | Continuity of Care Document ---
Author Organization [facility] Address [address] [place] [address]- Care Team Providers Care Weights And Measures Sealer Name Role Phone Wes Vickers Primary Care Physician [place] [facility] [place]21 [facility] [address] [place] [address]- Allergies, Adverse Reactions, Alerts No Known Allergies Medications Nasonex 50 mcg/inh nasal spray 1 sprays, Nares, Both, Daily, PRN Other, # 17 Gm, 0 Refills, Maintenance, 04/05/17 15:00:55, [place] Start Date: 04/05/17 Status: Ordered ZyrTEC 10 mg oral tablet 1 tablet = 10 mg, By Mouth, Daily, PRN Other, 0 Refills, Maintenance, 04/05/17 14:59:02 Start Date: 04/05/17 Status: Ordered
--- OUTSIDE RECORDS SUMMARY | 2024-05-21 05:07 | XMS_ITS | Continuity of Care Document ---
Author Organization [facility] ter Address [address] [place] [address]- Care Team Providers Care Broomcorn Seeder Name Role Phone Wes Vickers Primary Care Physician Encounter [place] Date(s): 02/20/22 - 04/17/[address] [phone]- [place] Attending Physician: Danny Groves MD Admitting Physician: Germain LANDEROS, Danny Kay Allergies, Adverse Reactions, Alerts No Known Allergies Medications Nasonex 50 mcg/inh nasal spray 1 sprays, Nares, Both, Daily, PRN Other, # 17 Gm, 0 Refills, Maintenance, 04/05/17 15:00:55, [place] Start Date: 04/05/17 Status: Ordered ZyrTEC 10 [...] Care Team Personnel Name: Wes Vickers Address: [address] [place] [id number]
--- OUTSIDE RECORDS SUMMARY | 2024-05-21 05:07 | XMS_ITS | Continuity of Care Document ---
Author Organization [facility] Address [address] [place] [address]- Care Team Providers Care Home Health Scheduler Name Role Phone Wes Vickers Primary Care Physician [phone] [place] [facility] [place]22 [facility] [address] [place], [place] [id number] Attending Physician: Yuli Baltazar Admitting Physician: Yuli Baltazar Referring Physician: Yuli Baltazar Allergies, Adverse Reactions, Alerts No Known Allergies Medications Nasonex 50 mcg/inh nasal spray 1 sprays, Nares, Both, Daily, PRN Other, # 17 Gm, 0 Refills, Maintenance, 04/05/17 15:00:55, [place] Start Date: 04/05/17 Status: Ordered PEG-3350 with Electrolytes (Eqv-NuLYTELY) oral powder for reconstitution See Instructions, Mixpowder with waer according to the product label. Follow the [facility] instructions stating when to drink the [...] Active Opioid dependence in remission Confirmed Active Social History Social History Type Response Tobacco Other: Former smoker . Sex Patient Care team information Personnel Name: Wes Vickers Address: Address: [address] [place] [address]
--- OUTSIDE RECORDS SUMMARY | 2024-05-21 05:07 | XMS_ITS | Continuity of Care Document ---
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 Refills 0, Acute 02/09/24 8:00:00 EDT, as needed for pain, 02/02/24 8:16:00 EDT, Route to Pharmacy Electronically, [facility]/pharmacy #[id number], Partial fill upon patient request if t... Start Date: 02/02/24 Stop Date: 02/09/24 Status: Ordered Nasonex 50 mcg/inh nasal spray 1 sprays, Nares, Both, Daily, PRN Other, # 17 Gm, 0 Refills, Maintenance, 04/05/17 15:00:55, [place] Start Date: 04/05/17 Status: Ordered PEG-3350 with Electrolytes (Eqv-NuLYTELY) oral powder for reconstitution See Instructions, Mixpowder with waer according to the product label. Follow the [facility] instructions stating when to drink the prep [...] Confirmed Active Osteoarthritis of knee Confirmed Active Opioid dependence in remission Confirmed Active Results Radiology Reports * Exam Date Time Procedure Performing Provider Status 02/02/24 7:49 AM Knee 1 or 2 Views Left Juan Jose Chan; Auth (Verified) Notes: (Knee 1 or 2 Views Left) Reason For Exam: Pain RESULT: Knee 1 or 2 Views Left Knee 1 or 2 Views Left, 2 views Hx of Present Illness: L knee pain; Reason: Pain; Clinical Question(s): Arthritis COMPARISON: 04/05/2005. FINDINGS: No bone lesions or fractures. Moderate tricompartmental degenerative osteoarthritis but no evidence of osteochondral defect or intra-articular loose body. In particular there is significant narrowing of the medial compartment. There may be a small suprapatellar bursa effusion. IMPRESSION: Moderate tricompartmental degenerative osteoarthritis but no acute abnormality. Small left suprapatellar bursa effusion. WSN: [id number] Ordering Physician: Liliana Xiong Dictated By: Mike Silva MD, V Dictated Date/Time: 02/02/24 7:56 am Reviewed By: Mike Silva MD, V Signed By: Mike Silva MD, V Signed Date/Time: 02/02/24 7:56 am Transcribed By: VISHNU Transcribed Date/Time: 02/02/24 7:55 am Vital Signs Most recent to oldest [Reference Range]: 1 2 3 Height 168 cm (02/02/24 9:06 AM) 168 cm (02/02/24 3:26 AM) 168 cm (02/02/24 1:32 AM) Weight 82 kg (02/02/24 9:06 AM) 82 kg (02/02/24 3:26 AM) 82 kg (02/02/24 1:32 AM) Oxygen Saturation [94-100 %] 100 % (02/02/24 9:06 AM) 99 % (02/02/24 8:14 AM) 99 % (02/02/24 4:47 AM) Pulse Rate [55-90 bpm] 64 bpm (02/02/24 9:06 AM) 64 bpm (02/02/24 8:14 AM) 69 bpm (02/02/24 4:47 AM) Body Mass Index [18.5-24.99 kg/m2] 29.05 kg/m2 *H* (02/02/24 9:06 AM) 29.05 kg/m2 *H* (02/02/24 1:32 AM) Blood Pressure [90-138/55-84 mm Hg] 148/96mm Hg *H* (02/02/24 9:06 AM) 144/83mm Hg *H* (02/02/24 8:14 AM) 134/80mm Hg (02/02/24 4:49 AM) Respiratory Rate [16-30 br/min] 16 br/min (02/02/24 9:06 AM) 20 br/min (02/02/24 8:14 AM) 16 br/min (02/02/24 4:47 AM) Temperature [96.8-100.4 DegF] 97.6 DegF (02/02/24 9:06 AM) 97.3 DegF (02/02/24 8:14 AM) 98.0 DegF (02/02/24 4:47 AM) Mode of Delivery (Oxygen) Room air (02/02/24 9:06 AM) Room air (02/02/24 8:14 AM) Room air (02/02/24 4:47 AM) Blood pressure sites Arm, left (02/02/24 9:06 AM) Arm, right (02/02/24 8:14 AM) Arm, right (02/02/24 4:49 AM) Temperature Route Oral (02/02/24 9:06 AM) Oral (02/02/24 8:14 AM) Oral (02/02/24 4:47 AM) Dry Weight 82 kg (02/02/24 9:06 AM) 82 kg (02/02/24 3:26 AM) 82 kg (02/02/24 1:32 AM) Weight Obtained Via Standing scale (02/02/24 1:32 AM) Dry Weight Obtained Via Standing scale (02/02/24 1:32 AM) Social History Social History Type Response Tobacco Other: Former smoker . Sex Note * Liliana Ruiz: PERFORM, SIGN, VERIFY Event Display: Patient Education Handout Authored Date: [id number] Patient Care team information Care Team Personnel Name: Wes Vickers Position: Reference Physician Member Role: PCP Address: Address: [address] [place] [address]- Name: Kanika Milian RN Position: Susan RN Member Role: Primary Care Nurse Care Team Related Persons Name: JAMES BOYD Address: home [address] [place] [address]
--- OUTSIDE RECORDS SUMMARY | 2024-05-21 05:07 | XMS_ITS | Continuity of Care Document ---
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 Role Phone Wes Vickers Primary Care Physician [place] [facility] [place] [facility] [place] 11/25/21 - 12/25/21 [facility] [address] [place] [address]- Attending Physician: Yuli Baltazar Admitting Physician: Yuli Baltazar Referring Physician: Yuli Baltazar Allergies, Adverse Reactions, Alerts No Known Allergies Medications Nasonex 50 mcg/inh nasal spray 1 sprays, Nares, Both, Daily, PRN Other, # 17 Gm, 0 Refills, Maintenance, 04/05/17 15:00:55, [place] Start Date: 04/05/17 Status: Ordered ZyrTEC 10 mg oral tablet 1 tablet = 10 mg, By Mouth, Daily, PRN Other, 0 Refills, Maintenance, 04/05/17 14:59:02 Start Date: 04/05/17 Status: Ordered
--- OUTSIDE RECORDS SUMMARY | 2024-05-21 05:07 | XMS_ITS | Continuity of Care Document ---
Author Organization [facility] Address [address] [place] [address]- Care Team Providers Care Time Study Technologist Name Role Phone Wes Vickers Primary Care Physician [phone] [id number] 07[facility] [address] [place] [address]- Attending Physician: Michael LANDEROS, Martina Admitting Physician: Martina Rodriguez MD Allergies, Adverse Reactions, Alerts Substance Reaction Severity Status NKA Active Medications Ibuprofen 800 mg, By Mouth, Every 8 hours, PRN, Refills 0, Maintenance, pain, 04/05/17 14:58:07 Start Date: 04/05/17 Status: Ordered Nasonex 50 mcg/inh nasal spray 1 sprays, Nares, Both, Daily, PRN Other, # 17 Gm, 0 Refills, Maintenance, 04/05/17 15:00:55, [place] Start Date: 04/05/17 Status: Ordered ZyrTEC 10 mg oral tablet 1 tablet = 10 mg, By Mouth, Daily, PRN Other, 0 Refills, Maintenance, 04/05/17 14:59:02 Start Date: 04/05/17 Status: Ordered
--- OUTSIDE RECORDS SUMMARY | 2024-05-21 05:07 | XMS_ITS | Continuity of Care Document ---
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 Buying Intern Name Role Phone Wes Vickers Primary Care Physician Encounter [facility] [place] Date(s): 09/15/21 - 09/22/21 [facility] [address] [place] [address]- Encounter Diagnosis Rupture of left biceps tendon(Discharge Diagnosis) - 09/15/21 Attending Physician: Mauricio Fuchs MD Referring Physician: Wes Vicekrs Allergies, Adverse Reactions, Alerts No Known Allergies Medications naproxen 500 mg oral tablet 1 tablet = 500 mg, By Mouth, 2 times a day, PRN Pain , Moderate, for 14 days, with food, # 30 tablet, 0 Refills, Acute 09/29/21 10:56:00 EST, 09/15/21 10:56:00 EST, Tablet, [facility]/pharmacy #[id number], Partial fill upon patient request if the prescription is f... Start Date: 09/15/21 Stop Date: 09/29/21 Status: Ordered Nasonex 50 mcg/inh nasal spray 1 sprays, Nares, Both, Daily, PRN Other, # 17 Gm, 0 Refills, Maintenance, 04/05/17 15:00:55, [place] Start Date: 04/05/17 Status: Ordered ZyrTEC 10 mg oral tablet 1 tablet = 10 mg, By Mouth, Daily, PRN Other, 0 Refills, Maintenance, 04/05/17 14:59:02 Start Date: 04/05/17 Status: Ordered Problem List Diagnosis Diagnosis Type Effective Dates Health Status Cl inical Service Informant Rupture of left biceps tendon Discharge Diagnosis 09/15/21 Vital Signs Most recent to oldest [Reference Range]: 1 Height 169.5 cm (09/15/21 10:31 AM) Oxygen Saturation [94-100 %] 98 % (2/7/22 10:31 AM) Pulse Rate [55-90 bpm] 73 bpm (09/15/21 10:31 AM) Blood Pressure [90-138/55-84 mm Hg] 111/ 70mm Hg (09/15/21 10:31 AM) Temperature [96.8-100.4 DegF] 98.9 DegF (09/15/21 10:31 AM) Mode of Delivery (Oxygen) Room air (09/15/21 10:31 AM) Blood pressure sites Arm, right (09/15/21 10:31 AM) Temperature Route Temporal (09/15/21 10:31 AM)
[2024-05-21 05:08] VITALS: BP 159/81; PULSE 95; RESP 16; TEMP 36.4; O2SAT 99
== END 2024-05-21 05:08 | disposition home or self-care (01) ==
PROVIDERS: Emergency Provider Internal Medicine
DX: L08.89 Other specified local infections of the skin and subcutaneous tissue (principal); M25.461 Effusion, right knee; M79.604 Pain in right leg; Z79.899 Other long term (current) drug therapy
CPT/HCPCS: 99284